=== PATIENT | male | born 1960 | race Caucasian/White ===

== ENCOUNTER 2018-10-08 02:00 | Inpatient (IN) ==
[2018-10-08] MEDS ORDERED: ASPIRIN PO ONE (02:19)
[2018-10-08] MEDS ORDERED: ASPIRIN PR ONE (02:19)
[2018-10-08 02:50] LABS: AGAP 13; ALB/GLOB RATIO 1.2; ALBUMIN 3.2 g/dL (3.5-5.0); ALKALINE PHOSPHATASE 86 U/L (32-122); BUN 15 mg/dL (8-22); CALCIUM 8.9 mg/dL (8.8-10.2); CHLORIDE 105 mmol/L (98-107); CK PROFILE 29 U/L (24-204); COSMO 282; CREATININE 0.6 mg/dL (0.7-1.2); ESTIMATED GFR > 60; GLUCOSE 104 mg/dL (70-104); GOT 20 U/L (10-34); GPT 33 U/L (10-44); POTASSIUM 4.3 mmol/L (3.5-5.1); SODIUM 141 mmol/L (136-145); TCO2 23 mmol/L (25-35); TOTAL BILIRUBIN 0.19 mg/dL (0.20-1.00); TOTAL PROTEIN 5.8 g/dL (6.3-8.3)
[2018-10-08 03:01] LABS: INR 0.89; PROTIME 12.7 Seconds (11.0-16.0)
[2018-10-08 03:02] LABS: PTT 29.4 Seconds (22.3-41.8)
[2018-10-08 03:39] LABS: BASO# 0.06 X1000 (0.0-0.2); BASO% 0.6 % (0.0-0.8); EOS# 0.43 X1000 (0.0-0.7); EOS% 4.1 % (0.0-10.0); HEMATOCRIT 40.1 % (42.0-52.0); HEMOGLOBIN 12.6 g/dL (14.0-18.0); IMM GRAN# 0.06 X1000 (0.0-0.04); IMM GRAN% 0.6 % (0.0-0.5); LYMPH# 3.36 X1000 (1.2-3.4); LYMPH% 31.8 % (20.5-51.1); MCH 27.3 PG (27-31); MCHC 31.4 g/dL (33-37); MCV 86.8 FL (81-99); MONO# 0.76 X1000 (0.11-0.59); MONO% 7.2 % (1.7-9.3); MPV 9.4 FL (7.4-10.4); NEUT# 5.89 X1000 (1.4-6.5); NEUT% 55.7 % (42.2-75.2); PLT 613 X1000 (130-400); RBC 4.62 XMIL (4.7-6.1); RDW 14.6 % (11.5-14.5); WBC 10.56 X1000 (4.8-10.8)
--- NOTE | 2018-10-08 07:18 | HISTORY AND PHYSICAL ---
CHIEF COMPLAINT: Chest pain. HISTORY OF PRESENT ILLNESS: This is a very pleasant 58-year-old male with hypertension who recently had a massive MA, and I think had several stents placed and a pacemaker. It looks like that was a couple of weeks ago, maybe even 3 weeks ago, 09/18/2018 in [place]. He had an inferior STEMI with reciprocal changes. The patient, today, had chest pain acutely, left-sided, somewhat different than his previous chest pain. He had some shortness of breath. But, because of his recent history, he came in for evaluation. EKG: I would say may be a bit nonspecific because he had the recent MA, and he has an evolving inferior MA. No new changes; however, his troponin was elevated at a level of 0.235 with a normal CK. MB was not done because CK was so low. ProBNP was a bit elevated, but the chest x-ray does not show clear infiltrates or edema. He is not short of breath. When I examined him this morning, he is lying there without significant difficulty. The patient was placed in observation for chest pain. Dr. Knight had been phoned consulted overnight and recommended at least observation. So, we will continue to observe and follow. This may be trending troponins from his recent MA. PAST MEDICAL HISTORY: 1. Hypertension. 2. Dyslipidemia. 3. CAD. 4. There may be some components of intellectual impairment and neurocognitive disorder. He has been in [place] for that, and that was a couple of years ago. PAST SURGICAL HISTORY: 1. He has had a left inguinal hernia repair per Dr. Austin. 2. He has had depression. FAMILY HISTORY: He denied any CAD. SOCIAL HISTORY: He smokes about a pack and a half a day. He has done that for probably at least 20-25 years; currently not smoking. REVIEW OF SYSTEMS: Otherwise negative x a 10-point review of systems. PHYSICAL EXAMINATION: VITAL SIGNS: Blood pressure is 96/63, heart rate of 64, respiratory rate of 18, temperature was 97.5. GENERAL: A well-developed male in no acute distress, lying comfortably in bed. HEENT: Eye Exam: Pupils equal, round, and reactive to light. Extraocular movements were intact. Ears, Nose, and Throat Exam: He had moist mucous membranes. NECK: Exam was supple. CARDIOVASCULAR: Regular rate and rhythm. No murmurs, gallops, or rubs. PULMONARY: Bilateral breath sounds clear to auscultation. GASTROINTESTINAL: Soft, nontender, nondistended. Bowel sounds are positive. EXTREMITY: No clubbing or cyanosis. LYMPHATIC: No peripheral edema. NEUROLOGICAL: Cranial nerves 2-12 are grossly intact. SKIN EXAM: His pacemaker site is on his lateral aspect of his rib cage. Wound is clean, dry, and intact. There is some understandable bruising. Otherwise, unremarkable. LABORATORY DATA: Creatinine 0.6. Troponin 0.235. Hemoglobin and hematocrit 12 and 40, platelets 613,000. EKG again shows evolving ST changes in his inferior leads consistent with previous MA. His chest x-ray to me looks clear. He has got pacemaker leads, although he may have changes consistent with COPD. ASSESSMENT: This is a 58-year-old male with history of coronary artery disease status post stents, who presents with chest pain, possibly atypical, possibly related to the pacemaker, but also possibly related to unstable angina. His troponin is elevated, but he had a recent myocardial infarction; granted, it was about 3 weeks ago. 1. Chest pain. We will continue to trend cardiac enzymes. Cardiology will be consulted and evaluate further. I will let them decide about imaging including echo at this time, and we will monitor for improvement. 2. Hypertension. His blood pressure is actually on the marginal side. We will continue Lopressor and follow. 3. Tobacco abuse. We have counseled on cessation which he has stopped smoking since his event. We will put on NicoDerm patch and follow closely. DISPOSITION: Just pending his status and Cardiology evaluation. cc: Errol Cole MD
--- NOTE | 2018-10-08 08:02 | Diag Imaging Result Doc PS360 ---
EXAM: CHEST-2 VIEWS 10/08/2018 HISTORY: CP TECHNIQUE: PA and lateral chest COMMENT: There is a subcutaneous ICD lead just to the right of the midline with the device in the left midaxillary line. This was not present at the time the previous study. There is no evidence of acute pulmonary parenchymal disease although some increase in prominence of the interstitial markings is present particularly in the left lower lobe. Some of this difference compared to 09/02/2018 may be related to differences in inspiration. IMPRESSION: No evidence of acute disease. Electronically signed by Ellis Oconnell 10/08/2018 7:59 AM
--- NOTE | 2018-10-08 08:07 | EKG Report ---
Test Performed on : 10/08/2018 02:11:43 AM Test Reason : CP Blood Pressure : / mmHG Vent. Rate : 061 BPM Atrial Rate : 061 BPM P-R Int : 146 ms QRS Dur : 094 ms QT Int : 440 ms P-R-T Axes : 052 -50 -51 degrees QTc Int : 442 ms Normal sinus rhythm. Left axis deviation Inferior infarct , age undetermined Abnormal ECG When compared with ECG of 18-SEP-2018 06:10, (Unconfirmed) Inferior infarct is now present ST no longer elevated in Inferior leads ST no longer elevated in Lateral leads T wave inversion now evident in Inferior leads Nonspecific T wave abnormality, worse in Lateral leads Unconfirmed Result
[2018-10-08] MEDS ORDERED: NICODERM PATCH TD PRN (08:36)
[2018-10-08] MEDS ORDERED: LOVENOX SUBQ SCH (08:36)
[2018-10-08] MEDS ORDERED: TYLENOL PO PRN (08:36)
[2018-10-08] MEDS ORDERED: ZOFRAN IV PRN (08:36)
--- NOTE | 2018-10-08 09:00 | EKG Report ---
Test Performed on : 10/08/2018 08:47:43 AM Test Reason : cp Blood Pressure : / mmHG Vent. Rate : 059 BPM Atrial Rate : 059 BPM P-R Int : 144 ms QRS Dur : 092 ms QT Int : 456 ms P-R-T Axes : 053 -46 -52 degrees QTc Int : 451 ms Sinus bradycardia. Left axis deviation Inferior infarct (cited on or before 18-SEP-2018) Abnormal ECG When compared with ECG of 08-OCT-2018 02:11, (Unconfirmed) Nonspecific T wave abnormality now evident in Anterior leads Confirmed by Antoine Akbar MD ([id number]) on 10/09/2018 9:20:35 AM
[2018-10-08] MEDS: BRILINTA PO SCH ×2 (10:19→20:14)
[2018-10-08] MEDS: PRILOSEC PO SCH (10:19)
[2018-10-08] MEDS: LOPRESSOR PO SCH (10:19)
[2018-10-08] MEDS ORDERED: LOVENOX SUBQ ONE ×2 (12:15→12:30)
[2018-10-08] MEDS ORDERED: HEPARIN 1000 UNITS/NS 2,000 UNIT/1,000 ML IV.SOLN ONE (13:19)
[2018-10-08] MEDS ORDERED: NS 1,000 ML ONE (13:57)
[2018-10-08] MEDS ORDERED: VERSED ONE (13:57)
[2018-10-08] MEDS ORDERED: DEMEROL ONE ×2 (13:57→14:15)
[2018-10-08] MEDS ORDERED: CLAVE TWINSITE 32 IN 11959 ONE (13:57)
--- NOTE | 2018-10-08 14:04 | CARDIOLOGY CONSULTATION ---
DATE: 10/08/2018 CHIEF COMPLAINT: Chest pain. HISTORY: Mr. Sanford is a 58-year-old male who presented to the Emergency Room early this morning, I believe at about 1 o'clock with complaints of the sudden onset of substernal chest pain and left arm pain that woke him up from his sleep. The pain was intense and intermittent. It was somewhat different than the pain that brought him to the Emergency Room 3 weeks ago. However, because of his recent heart attack he woke up his and was brought to the E.R. In the E.R. they did an EKG that shows abnormal repolarization of the inferior wall with Q waves there suggesting an old inferior scar. Troponins were noted to be elevated at 0.235 and 0.219. CPK was 26. Albumin was 3.2 and proBNP elevated at 1531. BUN and creatinine are normal. The patient received a chest x-ray that shows no evidence of acute disease. He was given some nitro paste and aspirin and he is feeling a little better today. He has had some recurrent chest pain through the morning. I am seeing him at about 12:30 p.m. PAST MEDICAL HISTORY: His past history is positive for the recent event of an acute inferior wall myocardial infraction complicated with ventricular arrhythmia requiring resuscitation maneuvers. He was rushed to [facility] where they found severe right coronary artery and LAD disease. They worked on the right coronary artery and put in 3 stents there and at least one stent in the LAD. The initial angiographic result was good. His ejection fraction was down and they chose to put a defibrillator on him a few days ago. It is a subcutaneous defibrillator unit. The patient's past history is positive for depression and migraine headaches. He has not had any major other illnesses. PAST SURGICAL HISTORY: He has had inguinal hernia repair. Surgical history includes the recent implantation of a subcutaneous defibrillator. FAMILY HISTORY: Negative. SOCIAL HISTORY: He is still a smoker; about 1 pack a day. He lives with his and they have 3 children ages 22, 18, and 11. HOME MEDICATIONS: His home medications since the event happened on 09/18/2018 have been aspirin 81 mg daily, Brilinta 90 mg twice a day, metoprolol 50 mg daily, and Lipitor 40 mg at bedtime. REVIEW OF SYSTEMS: His review of systems is really noncontributory beyond the cardiac symptoms. PHYSICAL EXAMINATION: Vital Signs: Blood pressure is 110/62, temperature 97.5 , pulse 66, and respirations 22. His weight is 132 pounds. General: He is awake, alert, oriented, and in no distress. HEENT: Normal. Chest: Clear to auscultation and percussion. Cardiovascular: Heart sounds are regular and rhythmic. I do not hear a gallop or murmur. There is an incision in the chest from the implanted subcutaneous defibrillator. Abdomen: The abdomen is nontender. No masses. No hepatomegaly. Extremities: The extremities show good pulses. No peripheral edema. Neurological: He follows commands and moves all extremities. LABORATORY DATA: His sodium, potassium, BUN, and creatinine are normal. His hemoglobin is 12.6 and hematocrit 40.1. White cell count 10,560. IMPRESSION: 1. A patient who presents with recurrent chest pain following an acute myocardial infarction on 09/18/2018 with implantation of multiple stents. He does have multivessel coronary artery disease. This probably represents angina pectoris,unstable. 2. Left ventricular dysfunction post myocardial infarction. 3. Implantation of a prophylactic automatic implantable cardioverter defibrillator. 4. History of depression. 5. Tobacco user. RECOMMENDATIONS: Given his presentation and the recent event and the multiple stents I believe that the best way to make a diagnosis on this patient is to really proceed with left heart catheterization. I explained to him the procedure, benefits, risks, and complications. He is in agreement. Depending on the findings we will make further determinations and decisions. cc: Benji Grimm MD MTDD
--- NOTE | 2018-10-08 15:31 | EKG Report ---
Test Performed on : 10/08/2018 3:23:34 PM Test Reason : post cath. Blood Pressure : / mmHG Vent. Rate : 053 BPM Atrial Rate : 053 BPM P-R Int : 144 ms QRS Dur : 094 ms QT Int : 480 ms P-R-T Axes : 066 -39 -46 degrees QTc Int : 450 ms Sinus bradycardia. Left axis deviation Inferior infarct (cited on or before 08-OCT-2018) T wave abnormality, consider anterolateral ischemia Abnormal ECG When compared with ECG of 08-OCT-2018 08:47, (Unconfirmed) Inverted T waves have replaced nonspecific T wave abnormality in Anterolateral leads Confirmed by Raffy MARTÍNEZ, Antoine Francis ([id number]) on 10/09/2018 9:22:00 AM
[2018-10-08] MEDS ORDERED: NS 1,000 ML IV SCH (16:00)
--- NOTE | 2018-10-08 19:07 | CARDIAC CATH REPORT ---
DATE: 10/08/2018 PROCEDURE: 1. Left heart catheterization. 2. Selective bilateral coronary arteriography. 3. Left ventriculogram. 4. Opacification of the right femoral artery with deployment of a 6-Andorran Angio -Seal device. HISTORY: The patient is a 58-year-old male who presented with an acute myocardial infarction to the hospital on 09/18/2018. He was [facility] to [facility]. They found severe disease with subtotal occlusion of the right coronary artery and also severe stenosis of LAD. He suffered ventricular fibrillation. They were able to revascularize the right coronary artery with several stents and then the LAD with one stent. He presented to the hospital today at 1 :00 in the morning with chest pains. The troponin done initially was 0.23 and the second one 0.25. His CPKs were negative. ECG showed T wave inversion in the inferior leads, no ST elevation. His pain was not as severe as original heart attack and it eventually seemed to get better. The patient, because of his recent history, is advised to pursue heart catheterization to confirm or rule out the presence of a change in his coronary status. Benefits, risks, and complications were discussed. He understood and requested to proceed. DESCRIPTION OF PROCEDURE: The patient came into the cardiac cardiac cath lab manager in a fasting state. The right groin was prepped and draped in sterile fashion, anesthetized with lidocaine 1%. Two doses of Versed 1 mg and two doses of Demerol 25 mg given. A 6-Andorran sheath was inserted into the right femoral artery by following the modified Seldinger technique. The coronary arteries were opacified with 6-Andorran left Joey catheter and with a 5-Andorran YANELY catheter. With the right Joey catheter we negotiated the aortic valve. Left ventricular pressure was measured. Left ventriculogram was performed in 60-degree BOLIVIAN projection and 30- degree BROWNING projection by hand injection. At the conclusion of the case, all the catheters were removed. The sheaths were flushed and opacified. Angio-Seal device was deployed successfully. The patient tolerated the procedure well without complication. SUMMARY OF THE HEMODYNAMIC FINDINGS: The central aortic pressure was 101/72, left ventricular pressure 97/12. Post LV gram 94/12. Final central pressure was 101/60. SUMMARY OF THE ANGIOGRAPHIC FINDINGS: CORONARY ARTERIES: 1. Right coronary artery: Vessel is completely occluded after giving rise to an acute marginal branch. There are stents noted within the proximal and mid body as well as distal segment of the right coronary artery. The vessel is totally occluded. collateral circulation demonstrates flow from left to right into the distal terminal branches of the right coronary artery. 2. Left main coronary artery: The left main coronary artery appears to be anatomically normal. It divides into LAD and circumflex. 3. Left anterior descending coronary artery: This vessel shows mild to moderate disease in the order of 20% to 30% proximally. The previously deployed stent is patent. Distally, the vessel is patent and wraps around the apex of the left ventricle. 4. Circumflex: The circumflex coronary artery is nondominant, gives rise to a sinus rony branch, a tiny lateral branch. Thereafter gives rise to an atrial branch and a good obtuse marginal vessel. Circumflex shows couple of areas of 20% to 30% plaque. No critical stenosis. LEFT VENTRICULOGRAM: Left ventriculogram in 30-degree BROWNING projection and 60- degree BOLIVIAN projection reveals good contractility of the anterior apical portion of the left ventricle with akinesis of the basal to mid inferior wall of the left ventricle. That is consistent with a myocardial infarction. No mitral regurgitation. OPACIFICATION OF THE RIGHT FEMORAL ARTERY: The right femoral artery is unremarkable and Angio- Seal device was deployed successfully. FLUOROSCOPY: Fluoroscopy revealed the presence of stents within the right coronary artery and also within the LAD and the presence of subcutaneous defibrillator, which was given to the patient recently. IMPRESSION: In summary, this study shows: 1. Severe coronary artery disease with total occlusion of recently stented right coronary artery. Collateral flow from left to right is well visualized. 2. Patent left anterior descending with patent stent. Mild disease in the circumflex. 3. Ejection fraction about 45% to 50% with akinesis of the basal to mid inferior wall. 4. No mitral regurgitation or aortic stenosis. 5. Unremarkable right femoral artery with deployment of 6-Andorran Angio-Seal device. RECOMMENDATION: Per discussion with Misty Portillo, Dr. Duval, who had performed the original intervention and given the fact that the vessel is totally occluded, it has been more than 12 hours since presentation, and he is not having further chest pains and besides, there is evidence of an extensive inferior wall infarction, and evidence of good collateralization from left to right, it is probably best to pursue conservative medical management . We will observe him in the hospital for next couple of days and further advice will be forthcoming. cc: Benji Grimm MD MTDD
[2018-10-08] MEDS ORDERED: LIPITOR PO SCH (21:00)
--- NOTE | 2018-10-08 21:02 | PROVIDER DOCUMENTATION ---
HPI-General Adult - General Chief Complaint: Chest Pain Stated Complaint: CHEST PAIN/HEART ATTACK WEEK Time Seen by Provider: 10/08/18 02:27 Source: patient Allergies/Adverse Reactions: Patient Allergies Allergy/AdvReac Type Severity Reaction Status Date / Time No Known Allergies Allergy Verified 10/08/18 05:37 Home Medications: Home Medication List Medication Instructions Recorded Confirmed Last Taken Type ATORVAstatin [Lipitor] 40 mg PO QHS 10/08/18 10/08/18 10/07/18 History Aspirin [Ecotrin] 81 mg PO DAILY 10/08/18 10/08/18 10/07/18 History Metoprolol [Lopressor] 50 mg PO DAILY 10/08/18 10/08/18 10/07/18 History Ticagrelor [Brilinta] 90 mg PO BID 10/08/18 10/08/18 10/07/18 History - History of Present Illness -Gen Adult Nature of Presenting Problems: Pt presents with cp, started at 1am, sudden onset, left sided, comes and goes, no resolved, associated with sob, pt denies f/c, mayorga, cough, ap, n/v/d. pt is lying in bed in no acute distress. Location of Pain/Injury: reports: chest Pain Radiation: reports: other (left arm) Quality of Pain: reports: sharp Severity: reports: mild Onset/Duration: reports: 1-3 hours ago Timing: reports: gone now Context/Activities at Onset: reports: none Modifying Factors: improves with: nothing Associated Symptoms: reports: shortness of breath Similar Symptoms Previously?: Yes Recently seen or treated by another doctor?: Yes Review of Systems - Adult - REVIEW OF SYSTEMS - ADULT Constitutional: reports: no symptoms reported Eyes: reports: no symptoms reported Ears, Nose, Mouth & Throat: reports: no symptoms reported Cardiovascular: reports: see HPI Respiratory: reports: see HPI Gastrointestinal: reports: no symptoms reported Genitourinary: reports: no symptoms reported Musculoskeletal: reports: no symptoms reported Integumentary: reports: no symptoms reported Neurological: reports: no symptoms reported Psychiatric: reports: no symptoms reported Endocrine: reports: no symptoms reported Hematologic/Lymphatic: reports: no symptoms reported Allergic/Immunologic: reports: no symptoms reported All Other Systems: Reviewed and Negative Past History - Adult - PAST MEDICAL HISTORY-ADULT Review of Records: reports: Old Records Reviewed, Nursing Assessment Review, Medications Reviewed, Social history reviewed & non-contributory. Major Childhood Illnesses: reports: denies history Cardiovascular: reports: denies history Respiratory: reports: denies history Gastrointestinal: reports: denies history Obstetrical/Gynecological: reports: denies history Genitourinary: reports: denies history Musculoskeletal: reports: denies history Neurological: reports: denies history Psychiatric: reports: bipolar, psychiatric problems Endocrine/Immune: reports: denies history Other Conditions: reports: denies history - PRIOR SURGERIES/PROCEDURES Surgical/Procedure History: reports: none - PRIOR HOSPITALIZATIONS Prior Hospitalizations: reports: none - IMMUNIZATION STATUS Childhood Immunizations: See Nurse Assessment Flu Vaccine: See Nurse Assessment - FAMILY HISTORY Family History: reviewed, not pertinent Physical Exam-General - PHYSICAL EXAM-ADULT Initial Vital Signs Reviewed: Yes - CONSTITUTIONAL General Appearance: appears well - EYES Eyes: PERRL/EOMI - HEAD, EARS, NOSE, MOUTH & THROAT HENMT: normocephalic/atraumatic - NECK Neck: non-tender - RESPIRATORY Respiratory: chest non-tender - CARDIOVASCULAR Cardiovascular: normal peripheral pulses - GASTROINTESTINAL (ABDOMEN) Abdominal Exam: normal bowel sounds - LYMPHATIC Lymphatic: no adenopathy - MUSCULOSKELETAL Back Exam: normal inspection Extremity: normal range of motion - SKIN Integumentary: normal color - NEUROLOGIC 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 - PSYCHIATRIC Psych/Mental Status: normal mood/affect Progress - PLAN OF CARE/RESULTS Progress/Plan/Lab Results: Laboratory Results - last 24 hr 10/08/18 10/08/18 10/08/18 02:22 02:22 02:22 WBC 10.56 RBC 4.62 L Hgb 12.6 L Hct 40.1 L MCV 86.8 MCH 27.3 MCHC 31.4 L RDW Std Deviation 14.6 H Plt Count 613 H MPV 9.4 Immature Gran % (Auto) 0.6 H Neut % (Auto) 55.7 Lymph % (Auto) 31.8 Dade % (Auto) 7.2 Eos % (Auto) 4.1 Baso % (Auto) 0.6 Immature Gran # (Auto) 0.06 H Neut # (Auto) 5.89 Lymph # (Auto) 3.36 Dade # (Auto) 0.76 H Eos # (Auto) 0.43 Baso # (Auto) 0.06 PT INR PTT (Actin FS) Sodium 141 Potassium 4.3 Chloride 105 Carbon Dioxide 23 L Anion Gap 13 BUN 15 Creatinine 0.6 L Estimated GFR/1.73 m2 > 60 BUN/Creatinine Ratio 25 Glucose 104 Calculated Osmolality 282 Calcium 8.9 Total Bilirubin 0.19 L AST 20 ALT 33 Alkaline Phosphatase 86 Creatine Kinase 29 Troponin T Reh-V-Fxrrmdmswji Pept 1531 H Total Protein 5.8 L Albumin 3.2 L Globulin 2.6 Albumin/Globulin Ratio 1.2 10/08/18 10/08/18 02:22 02:22 WBC RBC Hgb Hct MCV MCH MCHC RDW Std Deviation Plt Count MPV Immature Gran % (Auto) Neut % (Auto) Lymph % (Auto) Dade % (Auto) Eos % (Auto) Baso % (Auto) Immature Gran # (Auto) Neut # (Auto) Lymph # (Auto) Dade # (Auto) Eos # (Auto) Baso # (Auto) PT 12.7 INR 0.89 PTT (Actin FS) 29.4 Sodium Potassium Chloride Carbon Dioxide Anion Gap BUN Creatinine Estimated GFR/1.73 m2 BUN/Creatinine Ratio Glucose Calculated Osmolality Calcium Total Bilirubin AST ALT Alkaline Phosphatase Creatine Kinase Troponin T 0.235 H Yfu-W-Ewfkrengtat Pept Total Protein Albumin Globulin Albumin/Globulin Ratio Orders Category Date Time Status Admit - [facility] Routine AdmDCTranf 10/08/18 08:36 Active Cardiac Monitoring DIRECTED Care 10/08/18 02:19 Completed Notify MD if DIRECTED Care 10/08/18 08:36 Active Nursing- MD Consult Request ROUTINE Care 10/08/18 08:36 Completed Oxygen Therapy- ED Nursing DIRECTED Care 10/08/18 02:19 Completed Saline Loc DIRECTED Care 10/08/18 08:36 Completed Saline Loc NOW Care 10/08/18 02:19 Completed Vital Signs Order Q 4-HR ASSESS Care 10/08/18 08:36 Completed Z-Document. for Tele Applied ORDERED Care 10/08/18 08:36 Completed Physician/Provider Consults Routine Cons 10/08/18 08:36 Ordered Heart Healthy Diet Diet 10/08/18 08:36 Completed NPO Diet 10/08/18 08:36 Completed CHEST-2 VIEWS [RAD] Stat Exams 10/08/18 02:19 Completed BASIC METABOLIC PANEL [CHEM] Routine Lab 10/09/18 06:00 Ordered CBC WITH ELECTRONIC DIFF [HEME] Routine Lab 10/09/18 06:00 Ordered CBC WITH ELECTRONIC DIFF [HEME] Stat Lab 10/08/18 02:22 Completed CK PROFILE [SP CHEM] Q8H Lab 10/08/18 09:00 Completed CK PROFILE [SP CHEM] Q8H Lab 10/08/18 16:22 Completed CK PROFILE [SP CHEM] Q8H Lab 10/09/18 00:36 Ordered CK PROFILE [SP CHEM] Stat Lab 10/08/18 02:22 Completed COMPREHENSIVE METABOLIC PANEL [CHEM] Stat Lab 10/08/18 02:22 Completed LIPID PROFILE W/DIR LDL [LIPIDS] Routine Lab 10/08/18 09:00 Completed PRO B-NATRIURETIC PEPTIDE Stat Lab 10/08/18 02:22 Completed PROTIME WITH INR [COAG] Stat Lab 10/08/18 02:22 Completed PTT [COAG] Stat Lab 10/08/18 02:22 Completed TROPONIN T Q8H Lab 10/08/18 09:00 Completed TROPONIN T Q8H Lab 10/08/18 16:22 Completed TROPONIN T Q8H Lab 10/09/18 00:36 Ordered TROPONIN T Stat Lab 10/08/18 02:22 Completed ATORVAstatin [Lipitor] Med 10/08/18 21:00 Active 40 mg PO QHS Acetaminophen [Tylenol] Med 10/08/18 08:36 Active 650 mg PO Q6H PRN PRN Aspirin Med 10/08/18 02:19 Discontinued 300 mg OK NOW ONE Aspirin Med 10/08/18 02:19 Discontinued 325 mg PO NOW ONE Aspirin EC Med 10/09/18 09:00 Active 81 mg PO DAILY Enoxaparin [Lovenox] Med 10/08/18 08:36 Discontinued 40 mg SUBQ Q24H Metoprolol [Lopressor] Med 10/08/18 09:00 Active 50 mg PO DAILY Nicotine Patch [Nicoderm Patch] Med 10/08/18 08:36 Active 21 mg TD DAILY PRN PRN Nitroglycerin Sl [Nitroglycerin] Med 10/08/18 08:36 Active 0.4 mg SL Q5M PRN PRN Omeprazole [Prilosec] Med 10/08/18 08:36 Active 20 mg PO DAILY@0700 Ondansetron [Zofran] Med 10/08/18 08:36 Active 4 mg IV Q4H PRN PRN Ticagrelor [Brilinta] Med 10/08/18 09:00 Active 90 mg PO BID CP/SOB/Palp >45 yrs of Age Stat Oth 10/08/18 02:19 Ordered Oxygen Device Routine Oth 10/08/18 08:36 Active Telemetry [OM.EQ] Routine Oth 10/08/18 08:36 Active EKG [EKG] Routine Ther 10/08/18 08:36 Draft EKG [EKG] Stat Ther 10/08/18 02:07 Draft Transfer/Admit Order [TRANSFER] Routine Transfer 10/08/18 06:16 Completed Result Diagrams: 10/08/18 02:22 10/08/18 02:22 Departure - Departure Date of Disposition Decision: 10/08/18 Time of Disposition Decision: 02:45 DIAGNOSIS: Chest pain Qualifiers: Chest pain type: unspecified Qualified Code(s): R07.9 - Chest pain, unspecified Disposition: ADMITTED INPATIENT 09 Certified Medical Emergency: Emergent Condition: Stable - Critical Care Note This patient required my direct & personal management of CC.: No Attestation - Physician/ ANGI Attestation Patient care was provided by Advanced Practice Provider:: No The physician spent face to face time with patient:: Yes Advanced Practice Provider documentation review:: Supervising physician onsite and consulted in the evaluation and care of this patient. The physician did have a face to face encounter with the patient.
[2018-10-09] MEDS ORDERED: MELATONIN PO ONE (01:10)
[2018-10-09] MEDS: LOVENOX SUBQ SCH ×2 (05:16→18:07)
[2018-10-09] MEDS: PRILOSEC PO SCH ×2 (05:16→06:32)
[2018-10-09 05:56] LABS: AGAP 11; BUN 13 mg/dL (8-22); CALCIUM 8.6 mg/dL (8.8-10.2); CHLORIDE 107 mmol/L (98-107); COSMO 282; CREATININE 0.7 mg/dL (0.7-1.2); ESTIMATED GFR > 60; GLUCOSE 102 mg/dL (70-104); POTASSIUM 4.3 mmol/L (3.5-5.1); SODIUM 141 mmol/L (136-145); TCO2 23 mmol/L (25-35)
[2018-10-09 06:13] LABS: BASO# 0.06 X1000 (0.0-0.2); BASO% 0.6 % (0.0-0.8); EOS# 0.37 X1000 (0.0-0.7); EOS% 3.5 % (0.0-10.0); HEMATOCRIT 39.5 % (42.0-52.0); HEMOGLOBIN 12.5 g/dL (14.0-18.0); IMM GRAN# 0.04 X1000 (0.0-0.04); IMM GRAN% 0.4 % (0.0-0.5); LYMPH# 2.71 X1000 (1.2-3.4); LYMPH% 25.5 % (20.5-51.1); MCH 27.9 PG (27-31); MCHC 31.6 g/dL (33-37); MCV 88.2 FL (81-99); MONO# 0.61 X1000 (0.11-0.59); MONO% 5.7 % (1.7-9.3); MPV 9.5 FL (7.4-10.4); NEUT# 6.85 X1000 (1.4-6.5); NEUT% 64.3 % (42.2-75.2); PLT 538 X1000 (130-400); RBC 4.48 XMIL (4.7-6.1); RDW 14.7 % (11.5-14.5); WBC 10.64 X1000 (4.8-10.8)
--- NOTE | 2018-10-09 07:02 | EKG Report ---
Test Performed on : 10/09/2018 06:41:45 AM Test Reason : chest pain/LA Blood Pressure : / mmHG Vent. Rate : 064 BPM Atrial Rate : 064 BPM P-R Int : 140 ms QRS Dur : 094 ms QT Int : 448 ms P-R-T Axes : 060 -37 -47 degrees QTc Int : 462 ms Normal sinus rhythm. Left axis deviation Inferior infarct (cited on or before 08-OCT-2018) Abnormal ECG When compared with ECG of 08-OCT-2018 15:23, (Unconfirmed) T wave inversion no longer evident in Anterior leads Confirmed by Antoine Akbar MD ([id number]) on 10/09/2018 9:22:43 AM
[2018-10-09] MEDS: LOPRESSOR PO SCH (08:00)
[2018-10-09] MEDS: BRILINTA PO SCH ×2 (08:00→20:24)
[2018-10-09] MEDS: ASPIRIN EC PO SCH (08:00)
--- NOTE | 2018-10-09 09:09 | PROGRESS NOTE ---
DATE: 10/09/2018 SUBJECTIVE: The patient reports feeling fine, denies any chest pain, any shortness of breath, any chest pressure, any nausea or discomfort. OBJECTIVE: Vital signs: Temperature 98.6, heart rate 68, respiratory 17, blood pressure 100/57, O2 sat 96% on 2 L nasal cannula. General: This is a clinically ill-looking 49-egtf-Zejon[age] male lying in bed in no acute distress. HEENT: Head is normocephalic, atraumatic. Mucous membranes seem dry. Neck: No JVD noted, no carotid bruits, no lymphadenopathy or thyromegaly. Cardiovascular: S1, S2 heard. No murmurs, gallops, or rubs. Regular rate and rhythm. Respiratory: Clear bilaterally to auscultation. No work of breathing or using accessory muscles. Abdomen: Soft, nontender to palpation. Bowel sounds present. No organomegaly. Extremities: No clubbing, cyanosis, or edema. Peripheral pulses present in both legs. Neurological: The patient is alert, oriented x3, moves four extremities. LABORATORY DATA: White cell count 10.64, hemoglobin 12.5, hematocrit 39.5, platelets 538 with normal BMP. Troponins are 0.230, and that has been around that range during the last 4 times that we have checked. ASSESSMENT AND PLAN: 1. Inferior wall acute myocardial infarction. The patient has been evaluated by Cardiology. They found on the left heart cath severe coronary artery disease with total occlusion of the recent stent to the right coronary artery. There has been a conversation with [facility], Dr. Duval, who did his first original intervention, and the recommendation is, considering that at the time that they were contacted it has been more than 12 hours since presentation and he is not having any chest pain, they recommend to keep him in the hospital 48 hours. I checked with Dr. Grimm, his densitometrist who is following him, and he preferred to keep him at least one more day here in the hospital considering that he had 2 recent episodes of myocardial infarction during the last 60 days. At this point, will continue following recommendations from them. 2. Hypertension. Blood pressure is in the range of high 90s and 100s. At this point, we do not need to add any medications to control blood pressure. Will continue to monitor. 3. Tobacco abuse. The patient has been counseled again on cessation, because this is one of the risk factors for cardiovascular disease that we can avoid. The patient acknowledged understanding. 4. Disposition: Will continue to monitor this patient closely here in the intensive care unit because of this reason, inferior wall PA. Will continue with Lovenox 1 mg/kg q.12 h., and if everything is okay and Cardiology says it is okay, will discharge this patient tomorrow. cc: Fer Agudelo MD
--- NOTE | 2018-10-09 11:01 | CARDIOLOGY PROGRESS NOTE ---
DATE: 10/09/2018 CHIEF COMPLAINT: Chest pain. SUBJECTIVE: Mr. Sanford is feeling better today. He is not having anymore chest pain. His groin is slightly tender. No swelling. OBJECTIVE: Vital signs: Temperature 98.6, pulse 68, respirations 17, blood pressure 100/57. General: The patient is awake, alert, oriented, in no distress. HEENT: Unremarkable. Chest: Clear to auscultation and percussion. Cardiac: Heart sounds regular and rhythmic, no gallop or murmur. Abdomen: Nontender. Extremities: Show good pulses, no edema. Neurological: Follows commands, moves four extremities. BLOOD WORK: His last 2 troponin levels were 0.230 at 5 a.m. today and 0.223 at midnight. Initial was 0.235. It seems like it is slightly going down. All his CPKs have been negative, a total of 4. His EKG today shows sinus rhythm, left axis, and a deep T-wave inversion in the inferior leads. His cholesterol, LDL is 102, total cholesterol 148, triglycerides 119, HDL 49. IMPRESSION: 1. Patient who presented with recurrent chest pain, probably acute coronary syndrome. 2. Status post previous intervention for acute myocardial infarction to the right coronary artery in September 18 2018. Left Heart cath done on October 08 2018 indicates occlusion of the entire right coronary artery after the origin of an acute marginal branch. There is collateral circulation going from the left to the right. This occlusion probably just happened in the past few days. 3. Tobacco user. 4. History of depression. 5. Potential for medical noncompliance. RECOMMENDATIONS: The patient has been found stable at this time. My recommendation is to maximize his cholesterol-lowering therapy. We really need to drive down his LDL cholesterol to the 60s. We are going to go up on Lipitor to 80 mg. He has to take 81 of aspirin plus Brilinta 90 twice a day for the next one year. Ideally, he should follow up with the physicians in [place] who were involved in his initial care and for ongoing followup. He really needs to establish with a primary care provider. He may be able to go home tomorrow if everything is okay. cc: MD BEATRIZ Mclaughlin
[2018-10-09] MEDS ORDERED: MORPHINE IV ONE (14:17)
[2018-10-09] MEDS ORDERED: MORPHINE ONE (14:27)
--- NOTE | 2018-10-09 14:29 | EKG Report ---
Test Performed on : 10/09/2018 2:16:56 PM Test Reason : cp Blood Pressure : / mmHG Vent. Rate : 055 BPM Atrial Rate : 055 BPM P-R Int : 152 ms QRS Dur : 094 ms QT Int : 460 ms P-R-T Axes : 054 -35 -53 degrees QTc Int : 440 ms Sinus bradycardia. Left axis deviation Inferior infarct (cited on or before 08-OCT-2018) T wave abnormality, consider anterolateral ischemia Abnormal ECG When compared with ECG of 09-OCT-2018 06:41, T wave inversion now evident in Anterior leads Confirmed by Antoine Akbar MD ([id number]) on 10/10/2018 8:31:00 AM
[2018-10-09] MEDS: NITROGLYCERIN SL PRN (20:24)
[2018-10-09] MEDS: LIPITOR PO SCH (20:24)
[2018-10-09] MEDS: MORPHINE IV PRN (23:37)
[2018-10-10] MEDS: PRILOSEC PO SCH ×2 (05:51→06:20)
[2018-10-10] MEDS: MORPHINE IV PRN (05:51)
[2018-10-10] MEDS: LOVENOX SUBQ SCH ×2 (05:51→18:26)
[2018-10-10] MEDS: BRILINTA PO SCH ×2 (08:14→22:42)
[2018-10-10] MEDS: ASPIRIN EC PO SCH (08:14)
[2018-10-10] MEDS: NITROGLYCERIN SL PRN (10:11)
[2018-10-10] MEDS: LOPRESSOR PO SCH (10:25)
--- NOTE | 2018-10-10 13:24 | PROGRESS NOTE ---
DATE: 10/10/2018 SUBJECTIVE: As per the patient, he has been having chest pain on and off at least every 30 minutes to every hour. He denies nausea or vomiting. No fever. No chills. He describes the chest pain as pressure like and a little bit more pressure-like on the right side of the chest, and some sharp pain more close to the sternal area. Creatinine is normal. Cardiology on board. OBJECTIVE: Vital Signs: Temperature 98.5 degrees, pulse 60, respiratory rate 18, blood pressure 97/58, oxygen saturation 100% on 2 L of nasal cannula. HEENT: Head normocephalic. No trauma. PERRLA. Neck: Supple. No JVD. No masses. Central trachea. Chest: Clear to auscultation. No wheezing. No rales. Cardiovascular: RRR. Abdomen: Soft, nontender, nondistended. No hepatosplenomegaly. Inguinal area on the right side no evidence of active bleeding or infection. Neurological: The patient is alert and oriented x3. No focal neurological deficits. LABORATORY: Creatinine 0.7. ASSESSMENT AND PLAN: 1. Chest pain likely due to acute coronary syndrome. Left heart catheterization done recently on 10/08/2017 showed occlusion of the right coronary artery after the origin of the acute marginal branch, and it looks like there is collateral circulation going from the left to the right. He is status post previous intervention for an acute myocardial infarction to the right coronary artery on 09/18/2018. We are trying to treat this patient medically. Cardiology Department following this patient closely, and they then had conversation with [facility]. since he had the intervention over there. He is still complaining of some chest pain that is quite frequent. 2. Hypertension. Actually the blood pressure is around 90s and 100s. We will continue with the same management. Cardiology on board. 3. Tobacco abuse. This patient has been highly advised against tobacco use. I will continue with daily cessation education. cc: Hever Haywood MD
[2018-10-10] MEDS ORDERED: RANEXA PO ONE (14:48)
[2018-10-10] MEDS ORDERED: 1/2 NS 250 ML IV SCH ×2 (15:00→15:30)
[2018-10-10] MEDS: 1/2 NS 1,000 ML IV SCH (15:10)
[2018-10-10] MEDS: LIPITOR PO SCH ×2 (19:57→22:38)
[2018-10-10] MEDS: RANEXA PO SCH ×2 (19:57→22:38)
[2018-10-10] MEDS: XANAX PO SCH (20:40)
[2018-10-11] MEDS: NITROGLYCERIN SL PRN ×2 (02:51→03:03)
[2018-10-11] MEDS: 1/2 NS 1,000 ML IV SCH (03:25)
[2018-10-11] MEDS: LOVENOX SUBQ SCH (05:58)
[2018-10-11] MEDS: PRILOSEC PO SCH (06:20)
[2018-10-11] MEDS: BRILINTA PO SCH ×2 (08:40→21:10)
[2018-10-11] MEDS: ASPIRIN EC PO SCH (08:40)
[2018-10-11] MEDS: RANEXA PO SCH ×2 (08:41→21:09)
[2018-10-11] MEDS: LOPRESSOR PO SCH (08:41)
--- NOTE | 2018-10-11 09:25 | PROGRESS NOTE ---
DATE: 10/11/2018 SUBJECTIVE: As per the patient, he has not been having chest pain. He spent a good night. He denies fever or chills. His creatinine is good. I discussed the case with Cardiology department yesterday. They will monitor probably this patient until tomorrow, but since he feels much better today, probably he is going to be discharged today, but I will follow recommendations. OBJECTIVE: Vital Signs: Temperature 98, pulse 59, respiratory rate 18, blood pressure 98/62, oxygen saturation 98 on 2 liters of nasal cannula. HEENT: Head normocephalic. No trauma. PERRLA. Neck: Supple. No JVD. No masses. Intact trachea. Chest: Clear to auscultation. No wheezing, no rales. Cardiovascular: RRR. Abdomen: Soft, nontender, nondistended. No hepatosplenomegaly. His inguinal hernia looks fine. Neurologic: The patient is alert and oriented x3. No focal deficits. LABORATORY DATA: Creatinine 0.7. ASSESSMENT AND PLAN: 1. Chest pain, likely secondary to acute coronary syndrome. Left heart catheterization done recently on 10/08/2017 showed occlusion of the right coronary artery after the origin of the marginal branch. It looks like there is collateral circulation going from the left to the right. He is status post previous intervention from an acute myocardial infarction to the right coronary artery on 09/18/2017. We are trying to treat this patient medically. Cardiology department following this patient closely and they have been talking to [facility] since he had an intervention over there. He is not complaining of chest pain at this moment. 2. Hypertension. Actually the patient has been in the 90s and 100s. 3. Tobacco abuse. This patient has been highly advised against tobacco use. I will continue with cessation education. cc: Hever Haywood MD
--- NOTE | 2018-10-11 12:45 | ECHO REPORT ---
ORDER DATE: 10/10/2018 ECHOCARDIOGRAPHIC MEASUREMENTS: 1. Interventricular septum 1.2. 2. Left ventricular posterior wall 1.1. 3. Diastolic diameter 5. 4. Left atrium 3.6. 5. Aorta 3.1. SUMMARY OF 2-DIMENSIONAL IMAGIN. Aortic valve leaflets are trileaflet. 2. Mitral valve was normal. Tricuspid valve was normal. Pulmonic valve was normal. 3. There was no aortic stenosis or regurgitation. There was trace to mild mitral regurgitation. Mild tricuspid regurgitation. Peak velocity across the tricuspid valve was 2 m/sec. 4. Normal left ventricular cavity size. Estimated ejection fraction of 55-60%. There is inferior wall akinesis. 5. There is no pericardial effusion or obvious intracardiac mass or thrombus. cc: Edy Crook MD
[2018-10-11] MEDS: LIPITOR PO SCH (21:09)
[2018-10-11] MEDS: XANAX PO SCH (21:09)
[2018-10-12 05:20] LABS: HEMATOCRIT 38.3 % (42.0-52.0); MCH 27.5 PG (27-31); MCHC 31.3 g/dL (33-37); MCV 87.8 FL (81-99); RBC 4.36 XMIL (4.7-6.1); RDW 14.5 % (11.5-14.5); WBC 8.69 X1000 (4.8-10.8)
[2018-10-12 05:41] LABS: AGAP 10; BUN 16 mg/dL (8-22); CALCIUM 8.8 mg/dL (8.8-10.2); CHLORIDE 106 mmol/L (98-107); COSMO 282; CREATININE 0.9 mg/dL (0.7-1.2); ESTIMATED GFR > 60; GLUCOSE 98 mg/dL (70-104); SODIUM 141 mmol/L (136-145); TCO2 25 mmol/L (25-35)
[2018-10-12] MEDS: PRILOSEC PO SCH (06:47)
--- NOTE | 2018-10-12 07:13 | EKG Report ---
Test Performed on : 10/10/2018 10:53:11 AM Test Reason : CP Blood Pressure : / mmHG Vent. Rate : 062 BPM Atrial Rate : 062 BPM P-R Int : 142 ms QRS Dur : 092 ms QT Int : 456 ms P-R-T Axes : 056 -46 -63 degrees QTc Int : 462 ms Normal sinus rhythm. Left axis deviation Low voltage QRS Inferior infarct (cited on or before 08-OCT-2018) Abnormal ECG When compared with ECG of 10-OCT-2018 05:52, (Unconfirmed) Serial changes of Inferior infarct present Confirmed by Raffy MARTÍNEZ, Antoine Francis ([id number]) on 10/12/2018 8:53:11 AM
[2018-10-12] MEDS ORDERED: LOPRESSOR PO SCH (07:45)
--- NOTE | 2018-10-12 08:09 | EKG Report ---
Test Performed on : 10/10/2018 05:52:41 AM Test Reason : cp Blood Pressure : / mmHG Vent. Rate : 057 BPM Atrial Rate : 057 BPM P-R Int : 148 ms QRS Dur : 094 ms QT Int : 446 ms P-R-T Axes : 065 -39 -56 degrees QTc Int : 434 ms Sinus bradycardia. Left axis deviation Low voltage QRS Inferior infarct (cited on or before 08-OCT-2018) Abnormal ECG When compared with ECG of 09-OCT-2018 14:16, (Unconfirmed) Serial changes of Inferior infarct present Confirmed by Raffy MARTÍNEZ, Antoine Francis ([id number]) on 10/12/2018 8:52:14 AM
[2018-10-12] MEDS: BRILINTA PO SCH (09:14)
[2018-10-12] MEDS: ASPIRIN EC PO SCH (09:14)
[2018-10-12] MEDS: RANEXA PO SCH (09:14)
[2018-10-12 09:16] VITALS: BP 98/60
--- NOTE | 2018-10-12 16:22 | DISCHARGE SUMMARY ---
ADMISSION DATE: 10/08/2018 DISCHARGE DATE: 10/12/2018 DISCHARGE DIAGNOSES: 1. Chest pain secondary to acute coronary syndrome. 2. Hypertension. 3. Tobacco abuse. 4. Status post previous intervention for acute myocardial infarction to the right coronary artery in 09/18/2018. 5. History of depression. 6. Potential for medical noncompliance. PROCEDURES PERFORMED: 1. Chest x-ray dated 10/08/2018. Impression: No evidence of acute disease. 2. Left heart catheterization with selective bilateral carotid coronary angiography, left ventriculogram and opacifications of the right femoral artery with deployment of a C6-Stateless Angio-Seal device dated 10/08/2018. Results: Severe coronary artery disease with total occlusion of the recent stent. Stented right coronary artery, collateral flow from left to right is well visualized. Patent left anterior descending with patent stent, mild disease in the circumflex, ejection fraction about 45 to 50 percent with akinesis of the basal and mid inferior wall, no mitral regurgitation or aortic stenosis, unremarkable right femoral artery with deployment of the 6-Stateless Angio-Seal device. HOSPITAL COURSE: 58-year-old male with a past medical history of hypertension, dyslipidemia and coronary artery disease with some possible intellectual impairment and or neuro- cognitive disorder. He presented to the hospital and was admitted on 10/08/2018. Recently, he had a massive DE and he was treated at [facility] in [place], where they placed some stents. That was done on 09/18/2018. He had an inferior STEMI with reciprocal changes. The patient presented to emergency department with chest pain left-sided that was somewhat different than his previous chest pain. He had some shortness of breath but because of his recent history, he came for evaluation. EKG was nonspecific because he had a recent DE. No new changes. However, his troponin was elevated at 0.2 on admission with a normal CK. ProBNP was a little bit elevated but chest x-ray did not show any acute abnormality. He was not complaining of shortness of breath. He was resting comfortably in bed. He was admitted and evaluated by the Cardiology Department and they have recommended to proceed with a left heart catheterization. The procedure was done on 10/08/2018. It showed a severe coronary artery disease with total occlusion of recently stented right coronary artery, collateral flow from the [id number] is well visualized, patent left anterior descending with patent stent, mild disease in the circumflex, ejection fraction about 45 to 50 percent with akinesis of the basal and mid inferior wall. No mitral regurgitation or aortic stenosis. Unremarkable right femoral artery with deployment of a 6-Stateless Angio-Seal device. At that point, Dr. Grimm discussed the case with [facility] health information manager Dr. Duval who had performed the original intervention. Given the fact that the vessel is totally occluded, it has been more than 12 hours since presentation and he is not having further chest pain and besides there is evidence of an extensive inferior wall infarction, and evidence of good collateralization from [id number] and it is probably best to continue with just conservative medical management. We kept the patient in the hospital for a couple of days and he was not complaining of chest pain yesterday or today. No shortness of breath, so we have decided to discharge this patient with strict followup by his primary whey department operator at [place], [place]. At the moment of discharge, this patient was tolerating p.o., ambulating, and not having chest pain or shortness of breath. I had a large conversation with the patient about tobacco abuse. As per the patient, he is willing to stop smoking completely, and I did give daily cessation education. OBJECTIVE: Vital Signs: Temperature 97.9 degrees, pulse 68, respiratory rate 15, blood pressure 98/60. Oxygen saturation 99 on 2 L of nasal cannula. HEENT: Head normocephalic. No trauma. PERRLA. Neck: Supple. No JVD. No masses. Central trachea. Chest: Clear to auscultation. No wheezing. No rales. Abdomen: Soft, nontender, nondistended. No hepatosplenomegaly. Extremities: No edema. No clubbing. No cyanosis. Inguinal area on the right side with a really small hematoma measuring 0.5 cm from previous cardiac cath but no signs of bleeding or infection. Neurological: The patient is alert and oriented x3. No focal deficits. LABORATORY: WBC 8.6, hemoglobin 12, hematocrit 38.3, platelets 387,000. Sodium 141, potassium 4, chloride 106, bicarbonate 25, BUN 16, creatinine 0.9. Glucose 98, calcium 8.8. DISCHARGE MEDICATIONS: Brilinta 90 mg p.o. b.i.d., aspirin 81 mg p.o. daily. Ranexa 500 mg p.o. b.i.d. Prilosec 20 mg p.o. daily. Nitroglycerin sublingual 0.4 mg sublingual q.5 hours minutes p.r.n. chest pain. Nicotine patch 21 mg transdermal daily as needed. Metoprolol 25 mg p.o. q.12 hours. Xanax 0.25 mg p.o. daily as needed and Lipitor 80 mg p.o. at bedtime. TIME SPENT AT DISCHARGE: Time discharging this patient is 35 minutes. cc: Hever Haywood MD
== END 2018-10-12 10:31 | disposition home or self-care (01) | DRG 282 ==
LOC: SUATTDRO → ED 02:00 → EDIPHOLD 08:07 → SUATTDRO 08:07 → 4N 09:16 → 3S 14:29
PROVIDERS: ATTEND Internal Medicine
CPT/HCPCS: 71020; 71046; 80048; 80053; 80061; 82550; 82565; 83721; 83735; 83880; 84484; 85025; 85027; 85610; 85730; 93005; 93010; 93306; 93458; 99285; A9270; C1760; J1644; J1650; J2175; J2250; J2270; J7030; Q9967

== ENCOUNTER 2019-03-30 09:20 | Observation (INO) ==
[2019-03-30] MEDS ORDERED: ASPIRIN PO ONE (09:26)
[2019-03-30] MEDS ORDERED: NITROGLYCERIN SL ONE ×2 (09:44→10:04)
--- NOTE | 2019-03-30 09:44 | PROVIDER DOCUMENTATION ---
HPI-Chest Pain - General Chief Complaint: Chest Pain Stated Complaint: CHEST PAIN Time Seen by Provider: 03/30/19 09:28 Source: patient Allergies/Adverse Reactions: Patient Allergies Allergy/AdvReac Type Severity Reaction Status Date / Time No Known Allergies Allergy Verified 03/30/19 09:42 Home Medications: Home Medication List Medication Instructions Recorded Confirmed Last Taken Type Aspirin [Ecotrin] 81 mg PO DAILY 10/08/18 10/25/18 10/07/18 History Ticagrelor [Brilinta] 90 mg PO BID 10/08/18 10/25/18 10/07/18 History ATORVAstatin [Lipitor] 80 mg PO QHS #120 tab 10/12/18 10/25/18 Unknown Rx Alprazolam [Xanax] 0.25 mg PO DAILY PRN #10 tab 10/12/18 10/25/18 Unknown Rx Metoprolol [Lopressor] 25 mg PO Q12H #120 tab 10/12/18 10/25/18 Unknown Rx Nicotine Patch [Nicoderm Patch] 21 mg TD DAILY PRN PRN patch.td24 10/12/18 10/25/18 Unknown Rx Nitroglycerin Sl [Nitroglycerin] 0.4 mg SL Q5M PRN PRN #10 tab 10/12/18 10/25/18 Unknown Rx Omeprazole [Prilosec] 20 mg PO DAILY@0700 #90 cap 10/12/18 10/25/18 Unknown Rx Ranolazine E.r. [Ranexa] 500 mg PO BID #120 tab 10/12/18 10/25/18 Unknown Rx - History of Present Illness-CP Nature of Presenting Problem: 58 y/o WM c/o lt sided chest pain that started this am about 30 mins before coming to the ER. Pt has hx of 3 stents and PA 6 months ago. Pt states that he was just sitting on his proch when he started having Lt sided CP that radiated to lt arm and sweating with SOB. Location: reports: other (lt chest) Chest Pain Radiation: reports: arms Quality of Pain: reports: aching, sharp Severity in ED: moderate Onset/Duration: abrupt Timing: still present Context/Activities at Onset: reports: light activity Modifying Factors: improves with: nothing Associated Symptoms: reports: shortness of breath Nitro Today/Relief: 0.4 mg x 1 Aspirin Treatment Today: 81 mg x 1 Prior Chest Pain/Cardiac Workup: reports: heart attack Similar Symptoms Previously?: Yes Recently Seen Here or By Another Healthcare Provider: No Review of Systems - Adult - REVIEW OF SYSTEMS - ADULT Constitutional: reports: no symptoms reported, see HPI Eyes: reports: no symptoms reported, see HPI Ears, Nose, Mouth & Throat: reports: no symptoms reported, see HPI Cardiovascular: reports: see HPI, chest pain Respiratory: reports: see HPI, shortness of breath Gastrointestinal: reports: no symptoms reported, see HPI Genitourinary: reports: no symptoms reported, see HPI Musculoskeletal: reports: no symptoms reported, see HPI Integumentary: reports: no symptoms reported, see HPI Neurological: reports: no symptoms reported, see HPI Psychiatric: reports: no symptoms reported, see HPI Endocrine: reports: no symptoms reported, see HPI Hematologic/Lymphatic: reports: no symptoms reported, see HPI Allergic/Immunologic: reports: no symptoms reported, see HPI All Other Systems: Reviewed and Negative Past History - Adult - PAST MEDICAL HISTORY-ADULT Review of Records: reports: Nursing Assessment Review, Medications Reviewed, Social history reviewed & non-contributory. Major Childhood Illnesses: reports: denies history Cardiovascular: reports: denies history Respiratory: reports: denies history Gastrointestinal: reports: denies history Obstetrical/Gynecological: reports: denies history Genitourinary: reports: denies history Musculoskeletal: reports: denies history Neurological: reports: denies history Psychiatric: reports: bipolar, psychiatric problems Endocrine/Immune: reports: denies history Other Conditions: reports: denies history - PRIOR SURGERIES/PROCEDURES Surgical/Procedure History: reports: none - PRIOR HOSPITALIZATIONS Prior Hospitalizations: reports: none - IMMUNIZATION STATUS Childhood Immunizations: See Nurse Assessment Flu Vaccine: See Nurse Assessment - FAMILY HISTORY Family History: reviewed, not pertinent Physical Exam-General - PHYSICAL EXAM-ADULT Initial Vital Signs Reviewed: Yes - CONSTITUTIONAL General Appearance: appears well, alert, mild distress - EYES Eyes: PERRL/EOMI - HEAD, EARS, NOSE, MOUTH & THROAT HENMT: normocephalic/atraumatic, moist mucous membranes, normal ENT inspection - NECK Neck: non-tender, full range of motion, supple, normal inspection - RESPIRATORY Respiratory: chest non-tender, lungs clear, normal breath sounds, no pleuratic chest pain, no respiratory distress, no accessory muscle use - CARDIOVASCULAR Cardiovascular: normal peripheral pulses, regular rate, rhythm, no edema, no gallop, no JVD, no murmur - GASTROINTESTINAL (ABDOMEN) Abdominal Exam: normal bowel sounds, non tender, soft, no organomegaly, no pulsatile mass - LYMPHATIC Lymphatic: no adenopathy - MUSCULOSKELETAL Back Exam: normal inspection, no CVA tenderness, no vertebral tenderness Extremity: normal range of motion, non-tender, normal gait - SKIN Integumentary: normal color, normal turgor - NEUROLOGIC Neurologic: tinsmith helper II-XII nml as tested, grossly normal, no motor/sensory deficits - PSYCHIATRIC Psych/Mental Status: normal mood/affect, normal thought content, normal thought process, oriented x 3 - HEART Score HEART Score: History: Moderately Suspicious HEART Score: ECG: Non-Specific Repolarization Disturbance/LBBB/PM HEART Score: Age: 45-65 Years HEART Score: Risk Factors for Atherosclerotic Disease: > or = 3 Risk Factors or History of Atherosclerotic Disease HEART Score: Troponin: < or = Normal Limit Total HEART Score:: 5 Progress - PLAN OF CARE/RESULTS Progress/Plan/Lab Results: Vital Signs - 8 hr 03/30/19 09:24 03/30/19 09:37 03/30/19 10:06 Temperature 97.3 F L Pulse Rate 63 62 64 Respiratory Rate 18 19 19 Blood Pressure 156/90 139/86 114/75 O2 Sat by Pulse Oximetry 97 97 99 03/30/19 10:32 Temperature Pulse Rate 54 L Respiratory Rate 18 Blood Pressure 121/82 O2 Sat by Pulse Oximetry 98 Laboratory Results - last 24 hr 03/30/19 03/30/19 03/30/19 09:40 09:40 09:40 WBC 7.71 RBC 5.11 Hgb 14.3 Hct 42.8 MCV 83.8 MCH 28.0 MCHC 33.4 RDW Std Deviation 14.6 H Plt Count 281 MPV 10.1 Immature Gran % (Auto) 0.5 Neut % (Auto) 51.9 Lymph % (Auto) 34.1 [place] % (Auto) 7.9 Eos % (Auto) 5.1 Baso % (Auto) 0.5 Immature Gran # (Auto) 0.04 Neut # (Auto) 4.00 Lymph # (Auto) 2.63 [place] # (Auto) 0.61 H Eos # (Auto) 0.39 Baso # (Auto) 0.04 PT INR PTT (Actin FS) Sodium 141 Potassium 4.1 Chloride 106 Carbon Dioxide 24 L Anion Gap 11 BUN 17 Creatinine 1.0 Estimated GFR/1.73 m2 > 60 BUN/Creatinine Ratio 17 Glucose 99 Calculated Osmolality 283 Calcium 9.5 Total Bilirubin 0.66 AST 15 ALT 17 Alkaline Phosphatase 61 Creatine Kinase 56 Troponin T Uih-[id number]-[id number] Pept 282 H Total Protein 6.4 Albumin 4.2 Globulin 2.2 Albumin/Globulin Ratio 1.9 03/30/19 03/30/19 09:40 09:40 WBC RBC Hgb Hct MCV MCH MCHC RDW Std Deviation Plt Count MPV Immature Gran % (Auto) Neut % (Auto) Lymph % (Auto) [place] % (Auto) Eos % (Auto) Baso % (Auto) Immature Gran # (Auto) Neut # (Auto) Lymph # (Auto) [place] # (Auto) Eos # (Auto) Baso # (Auto) PT 13.3 INR 1.00 PTT (Actin FS) 30.3 Sodium Potassium Chloride Carbon Dioxide Anion Gap BUN Creatinine Estimated GFR/1.73 m2 BUN/Creatinine Ratio Glucose Calculated Osmolality Calcium Total Bilirubin AST ALT Alkaline Phosphatase Creatine Kinase Troponin T < 0.010 Dfb-H-Diigbxgcotb Pept Total Protein Albumin Globulin Albumin/Globulin Ratio Orders Category Date Time Status Cardiac Monitoring DIRECTED Care 03/30/19 09:26 Active Saline Loc NOW Care 03/30/19 09:26 Active CHEST-2 VIEWS [RAD] Stat Exams 03/30/19 09:26 Completed CBC WITH ELECTRONIC DIFF [HEME] Stat Lab 03/30/19 09:40 Completed CK PROFILE [SP CHEM] Stat Lab 03/30/19 09:40 Completed COMPREHENSIVE METABOLIC PANEL [CHEM] Stat Lab 03/30/19 09:40 Completed PRO B-NATRIURETIC PEPTIDE Stat Lab 03/30/19 09:40 Completed PROTIME WITH INR [COAG] Stat Lab 03/30/19 09:40 Completed PTT [COAG] Stat Lab 03/30/19 09:40 Completed TROPONIN T Stat Lab 03/30/19 09:40 Completed Aspirin Med 03/30/19 09:26 Discontinued 325 mg PO NOW ONE Hydromorphone [Dilaudid] Med 03/30/19 10:31 Discontinued 1 mg IV NOW ONE Nitroglycerin Sl [Nitroglycerin] Med 03/30/19 09:44 Discontinued 0.4 mg SL NOW ONE Nitroglycerin Sl [Nitroglycerin] Med 03/30/19 10:04 Discontinued 0.4 mg SL NOW ONE Ondansetron [Zofran] Med 03/30/19 10:31 Discontinued 4 mg IV NOW ONE CP/SOB/Palp >45 yrs of Age Stat Oth 03/30/19 09:26 Ordered EKG [EKG] Stat Ther 03/30/19 09:26 Draft At recheck pt notes that CP was relieved with dilaudid and nitro. Hospitalist paged for admit [id number]. Result Diagrams: 03/30/19 09:40 03/30/19 09:40 - CONSULTS/PCP/HOSPITALIST Notification #1 *Consult/PCP/Hospitalist*: Nettie for Dr Crooks Time Discussed: 11:10 Consult Disposition: Will see in ED, Admit Departure - Departure Date of Disposition Decision: 03/30/19 Time of Disposition Decision: 11:10 DIAGNOSIS: Chest pain, HTN (hypertension) Disposition: ADMITTED INPATIENT 09 Certified Medical Emergency: Emergent Condition: Fair Referrals and Follow-Ups: Sarah Caraballo [Primary Care Provider] - - Critical Care Note This patient required my direct & personal management of CC.: No Attestation - Physician/ ANGI Attestation Patient care was provided by Advanced Practice Provider:: No The physician spent face to face time with patient:: Yes Advanced Practice Provider documentation review:: Supervising physician onsite and consulted in the evaluation and care of this patient. The physician did have a face to face encounter with the patient.
--- NOTE | 2019-03-30 09:46 | EKG Report ---
Test Performed on : 03/30/2019 09:22:31 AM Test Reason : chest pain Blood Pressure : / mmHG Vent. Rate : 061 BPM Atrial Rate : 061 BPM P-R Int : 152 ms QRS Dur : 090 ms QT Int : 450 ms P-R-T Axes : 040 -48 -23 degrees QTc Int : 453 ms Normal sinus rhythm. Left axis deviation Possible Lateral infarct , age undetermined Inferior infarct (cited on or before 08-OCT-2018) Abnormal ECG When compared with ECG of 25-OCT-2018 11:26, Nonspecific T wave abnormality no longer evident in Anterior leads Unconfirmed Result
[2019-03-30 09:59] LABS: BASO# 0.04 X1000 (0.0-0.2); BASO% 0.5 % (0.0-0.8); EOS# 0.39 X1000 (0.0-0.7); EOS% 5.1 % (0.0-10.0); HEMATOCRIT 42.8 % (42.0-52.0); HEMOGLOBIN 14.3 g/dL (14.0-18.0); IMM GRAN# 0.04 X1000 (0.0-0.04); IMM GRAN% 0.5 % (0.0-0.5); LYMPH# 2.63 X1000 (1.2-3.4); LYMPH% 34.1 % (20.5-51.1); MCHC 33.4 g/dL (33-37); MCV 83.8 FL (81-99); MONO# 0.61 X1000 (0.11-0.59); MONO% 7.9 % (1.7-9.3); MPV 10.1 FL (7.4-10.4); NEUT% 51.9 % (42.2-75.2); PLT 281 X1000 (130-400); RBC 5.11 XMIL (4.7-6.1); RDW 14.6 % (11.5-14.5); WBC 7.71 X1000 (4.8-10.8)
--- NOTE | 2019-03-30 10:02 | Diag Imaging Result Doc PS360 ---
EXAM: CHEST-2 VIEWS HISTORY: chest pain TECHNIQUE: Chest two views COMPARISON: 10/25/2018 FINDINGS: The lungs are well expanded. The heart is not enlarged. The vessels are not distended. There are no infiltrates. No pleural effusions. No change in the left lateral electronically device which may be a defibrillator. IMPRESSION: No acute abnormality. Electronically signed by Josemanuel Brower 03/30/2019 10:00 AM
--- NOTE | 2019-03-30 10:03 | ED EKG INTERP ---
This chart was entered by Vera Pruitt Scribe, acting as scribe for Peng Villaseñor MD. EKG Interpretation - EKG Time of EKG reading by physician:: 09:22 EKG Read and Signed by:: Peng Villaseñor EKG Interpretation (*Must complete 3 of following elements*): Abnormal Rate: 61 Rhythm: nsr Drury: left (deviation) QRS: other (poss lateral infarct/inferior infarct, age undetermined) NV Interval: normal ST Wave: normal Attestation - Physician/ ANGI Attestation Patient care was provided by Advanced Practice Provider:: No The physician spent face to face time with patient:: Yes Advanced Practice Provider documentation review:: Supervising physician onsite and consulted in the evaluation and care of this patient. The physician did have a face to face encounter with the patient. This chart was documented by the indicated scribe, (Vera Pruitt Scribe) and accurately reflects the services I performed and decisions made by me, Peng Villaseñor MD, as attested by the provider's signature.
[2019-03-30 10:04] LABS: PROTIME 13.3 Seconds (11.0-16.0)
[2019-03-30 10:05] LABS: PTT 30.3 Seconds (22.3-41.8)
[2019-03-30 10:23] LABS: AGAP 11; CHLORIDE 106 mmol/L (98-107); POTASSIUM 4.1 mmol/L (3.5-5.1); SODIUM 141 mmol/L (136-145); TCO2 24 mmol/L (25-35)
[2019-03-30 10:24] LABS: ALB/GLOB RATIO 1.9; ALBUMIN 4.2 g/dL (3.5-5.0); ALKALINE PHOSPHATASE 61 U/L (32-122); BUN 17 mg/dL (8-22); CALCIUM 9.5 mg/dL (8.8-10.2); CK PROFILE 56 U/L (24-204); COSMO 283; ESTIMATED GFR > 60; GLUCOSE 99 mg/dL (70-104); GOT 15 U/L (10-34); GPT 17 U/L (10-44); TOTAL BILIRUBIN 0.66 mg/dL (0.20-1.00); TOTAL PROTEIN 6.4 g/dL (6.3-8.3)
[2019-03-30] MEDS ORDERED: DILAUDID IV ONE (10:31)
[2019-03-30] MEDS ORDERED: ZOFRAN IV ONE (10:31)
[2019-03-30] MEDS ORDERED: TYLENOL PO PRN (12:12)
[2019-03-30] MEDS ORDERED: NITROGLYCERIN SL PRN (12:12)
[2019-03-30] MEDS ORDERED: ZOFRAN IV PRN (13:00)
[2019-03-30] MEDS ORDERED: XANAX PO PRN (13:28)
[2019-03-30 13:49] LABS: AGAP 11; BUN 17 mg/dL (8-22); CALCIUM 9.4 mg/dL (8.8-10.2); CHLORIDE 105 mmol/L (98-107); CK PROFILE 55 U/L (24-204); COSMO 283; ESTIMATED GFR > 60; GLUCOSE 95 mg/dL (70-104); POTASSIUM 4.3 mmol/L (3.5-5.1); SODIUM 141 mmol/L (136-145); TCO2 25 mmol/L (25-35)
[2019-03-30] MEDS ORDERED: IMDUR PO ONE (14:14)
--- NOTE | 2019-03-30 14:19 | HISTORY AND PHYSICAL ---
PRIMARY CARE PHYSICIAN: Dr. Sarah Caraballo. CHIEF COMPLAINT: Chest pain that began 30 minutes prior to arriving, radiating to his left arm, with associated diaphoresis and shortness of breath. HISTORY OF PRESENTING ILLNESS: This is a 58-year-old male who presents to [facility] with complaints of left-sided chest pain that began approximately 30 minutes prior to arriving. He states the pain felt like a pressure and radiated, with numbness and tingling down his left arm. He had some associated diaphoresis and shortness of breath. He states that he was sitting out on his porch when this occurred this morning. Once he arrived to the emergency room, he had 2 nitroglycerin sublingually, and it was relieved after the second one. He states that he had an RI x2 six months ago that were 4 days apart, requiring 3 heart stent placements and that this discomfort does not feel the same as his previous heart attack. His workup in the emergency room showed his first troponin was negative, but he will be admitted for further evaluation and treatment. PAST MEDICAL HISTORY: Hypertension, dyslipidemia, coronary artery disease, depression, RI x2 six months ago that were 4 days apart, bipolar, schizophrenia, and mild retardation. PAST SURGICAL HISTORY: Heart stent placement x3 six months ago, status post RI x2, and a left inguinal hernia repair. FAMILY HISTORY: Reviewed and noncontributory. SOCIAL HISTORY: He currently lives with family. He is a pack and a half a day smoker for the past 25 years but has quit since his RI. Denies any alcohol or illicit drug use. ALLERGIES: He has no known drug allergies. HOME MEDICATIONS: A current list will need to be obtained, reconciled, reviewed, and restarted as appropriate. We will place an order for nursing to update and confirm home medications. LABORATORY DATA: Showed a white blood cell count of 7.71, hemoglobin 14.3, hematocrit 42.8, platelets 281,000. PT and INR of 13.3 and 1.0. Sodium 141, potassium 4.1, chloride 106, CO2 is 24, BUN of 17, creatinine 1, glucose 99. Cardiac enzyme x1 set was negative. ProBNP of 282. Chest x-ray showed no acute abnormality. EKG showed normal sinus rhythm at 61. REVIEW OF SYSTEMS: He denied any fever, chills, blurred vision, or dizziness. He did have some diaphoresis, chest pain, shortness of breath. The pain radiated to his left arm with numbness and tingling. Denied any abdominal pain, constipation, diarrhea, burning or hurting with urination. PHYSICAL EXAMINATION: VITAL SIGNS: On arrival, he had a temperature of 97.3 degrees, pulse 63, respirations 18, blood pressure 156/90, saturating 97% on room air. GENERAL: This is a 58-year-old male lying in the bed and answers questions appropriately. HEENT: Normocephalic, atraumatic. Normal ENT inspection. Oropharynx and nares are clear. EYES: Pupils are equal, round, reactive to light and accommodation. Extraocular movements are intact. NECK: Normal inspection, normal range of motion. LUNGS: Clear to auscultation bilaterally. Equal lung expansion and chest wall movement. HEART: Regular rate and rhythm. No murmurs, rubs, or gallops. ABDOMEN: Soft, nontender, nondistended. Bowel sounds are present x4 quadrants. MUSCULOSKELETAL: He has 5/5 strength x4 extremities. NEUROLOGICAL: The cranial nerves II through XII appear grossly intact. ASSESSMENT: 1. Unstable angina. 2. Hypertension. 3. Coronary artery disease. Aware. 4. Mild mental retardation with bipolar schizophrenia. PLAN: He is being admitted to the Medical Unit, placed on telemetry, O2 per protocol. Healthy heart diet. We will consult Cardiology. We will update and confirm home medications as previously noted. We will do serial cardiac enzymes q.8 hours x3. We will check a CBC and BMP in the a.m. SCDs for DVT prophylaxis. Further orders after seen by attending and regional engagement consultant. Dictated by VINCE Herron for Corey Crooks MD cc: VINCE Herron MD Valerie Wright I agree with most components of history, physical, assessment and plan. A separate addendum has been dictated. BEATRIZ
[2019-03-30] MEDS: MORPHINE IV PRN ×2 (14:29→19:43)
--- NOTE | 2019-03-30 14:51 | EKG Report ---
Test Performed on : 03/30/2019 2:28:14 PM Test Reason : Persistent chest pain Blood Pressure : / mmHG Vent. Rate : 049 BPM Atrial Rate : 049 BPM P-R Int : 168 ms QRS Dur : 098 ms QT Int : 488 ms P-R-T Axes : 054 -51 -40 degrees QTc Int : 440 ms Sinus bradycardia. Left axis deviation Inferior infarct (cited on or before 08-OCT-2018) Abnormal ECG When compared with ECG of 30-MAR-2019 09:22, (Unconfirmed) No significant change was found Confirmed by Robi Waters MD ([id number]) on 04/01/2019 7:24:36 AM
--- NOTE | 2019-03-30 15:06 | HISTORY AND PHYSICAL ---
ADDENDUM: I agree with most components of the history, physical, assessment, and plan. In brief, Mr. Sanford is a 58-year-old, man with a past medical history of coronary artery disease, status post 3 stents in the RCA and 1 stent in the LAD in October 2018, congestive heart failure, status post AICD, who comes in with chief complaints of left-sided precordial chest pain with left shoulder and arm radiation associated with diaphoresis and shortness of breath which started when he was sitting on the couch. His chest pain got slightly better after a second dose of nitroglycerin in the emergency room. He was also given 325 mg of aspirin. Previously, he was also found to have a total occlusion of recently stented right coronary artery with collateral flow from left to right, which was decided to be managed medically. In the emergency room, EKG had old Q-wave in inferior leads and first set of troponin was negative. SUBJECTIVE: At the time of my evaluation, he still complains of chest pain located in the left side and wants some pain medications. VITALS: Temperature 97.5 degrees, pulse 53, respiratory rate 18, blood pressure 103/72. He is saturating 95% on room air. He is denying any cough. PHYSICAL EXAMINATION: GENERAL: In mild distress because of chest pain. HEENT: Oral cavity is moist. LUNGS: Air entry bilaterally equal. No wheeze, rhonchi, crackles. CARDIOVASCULAR: S1, S2 normal. No murmur, rub, or gallop. ABDOMEN: Soft, nontender. EXTREMITIES: No lower extremity edema. NEUROLOGIC: He is alert and oriented x3. SKIN: Does not have any pallor, cyanosis, clubbing, or icterus. LABS: Suggestive of normal CBC, normal coagulation profile, normal kidney function. Two troponins have been negative. No new microbiological data. IMAGING: Chest x-ray was unremarkable. EKG had Q-waves in inferior leads without any new ST-T changes. ASSESSMENT: 1. Chest pain at rest, Unstable angina with prior history of severe coronary artery disease 2. Congestive heart failure, status post automatic implantable cardioverter defibrillator. PLAN: I will resume patient's home dual antiplatelet medication. The patient states that he took aspirin and Brilinta in the morning time. I will repeat a stat EKG and cardiology has been consulted. Depending on that, I will go ahead and give him a dose of in therapeutic enoxaparin. Plan of care discussed with him. His questions have been answered. cc: Corey Crooks MD MTDD
[2019-03-30] MEDS: LOVENOX SUBQ SCH ×2 (17:20→17:36)
--- NOTE | 2019-03-30 19:32 | CARDIOLOGY CONSULTATION ---
DATE: 03/30/2019 CONSULTATION REQUESTED BY: Hospitalist service. REASON FOR CONSULTATION: Chest pain. HISTORY: Mr. Sanford is a 58-year-old male, normally followed by Dr. Walter in [place], who presented at this time to the emergency room because he had significant chest discomfort after doing some work in the yard. He was weeding. The patient did that for about 15 minutes, and then he had to stop, with significant discomfort in the chest which radiated to the arm. In the ER, he was given some pain medication and nitroglycerin, and eventually the pain gradually improved. At this time, he is doing better. I am seeing him at about 4 p.m. PAST MEDICAL HISTORY: Positive for severe coronary heart disease. He had a myocardial infarction in 2017 that led to cardiac arrest, requiring multiple stents to the right coronary artery and 1 to the LAD. He was readmitted to this hospital in October, and at that time I performed a heart catheterization that showed that the entire right coronary artery was completely occluded with some collaterals coming from the left system to the distal right coronary branches. In November of this year, they attempted to recanalize the right coronary artery; however they failed, and they recommended maximal medical therapy. The patient has been having chest pain off and on since then. The patient has a history of hypertension, hyperlipidemia, and also a history of bipolar disorder. PAST SURGICAL HISTORY: He has had implantation of an ICD. He has had inguinal hernia repair. SOCIAL HISTORY: He is , disabled. He lives at home. He has 3 grownup children. He has been a tobacco user, but he quit with his heart attack in 2018. FAMILY HISTORY: Noncontributory. ALLERGIES: Negative. HOME MEDICATIONS: At this time include alprazolam, aspirin, atorvastatin 80 daily, carvedilol 6.25 twice a day, isosorbide mononitrate 60 mg daily, mirtazapine 30 at bedtime, omeprazole 20 mg daily, Ranexa 1000 twice a day, Brilinta 90 mg twice a day, trazodone 50 mg at bedtime. REVIEW OF SYSTEMS: Other than the recurrent angina pectoris, noncontributory. PHYSICAL EXAMINATION: Vital signs: Blood pressure 121/75, pulse is 50 per minute, temperature 97.5 degrees, respirations 18. General: He is awake, alert, in no distress. HEENT: Unremarkable. Chest: Diffusely diminished breath sounds. Cardiovascular: Heart sounds are regular and rhythmic. No gallop or murmur. Abdomen: Soft, nontender. No masses. No hepatomegaly. Extremities: Showed good pulses. No peripheral edema. Neurological: Nonfocal. Moves 4 extremities. LABORATORY DATA: Blood work: Sodium 141, potassium 4.3, BUN 17, creatinine 1.0, chloride 105, carbon dioxide 25. IMPRESSION: 1. Patient who presents with chest pain, possible unstable angina. He has severe coronary heart disease with total occlusion of the right coronary artery and collaterals coming from the left to right. He has a moderate circumflex stenosis. 2. Systolic heart failure secondary to myocardial infarction. 3. Status post automatic implantable cardioverter-defibrillator implantation for prevention of sudden . 4. History of tobacco use. RECOMMENDATIONS: 1. At this time, we will do a resting gated myocardial perfusion study to see what is his resting ejection fraction is, and to see whether or not there may be ischemia in the territory of the circumflex coronary artery. 2. We will continue with maximal medical therapy. 3. I had a long conversation with the patient about the need to limit his physical activities to only the ones that he can reasonably tolerate. The patient really is not somebody that should be doing strenuous physical activity outside. cc: Benji Grimm MD MTDD
[2019-03-30] MEDS ORDERED: BRILINTA PO SCH (21:00)
[2019-03-30] MEDS ORDERED: RANEXA PO SCH (21:00)
[2019-03-30] MEDS: REMERON PO SCH (21:52)
[2019-03-30] MEDS: COREG PO SCH (21:54)
[2019-03-31] MEDS: LOVENOX SUBQ SCH ×2 (03:34→16:11)
[2019-03-31] MEDS: PRILOSEC PO SCH (06:14)
[2019-03-31] MEDS: MORPHINE IV PRN ×4 (06:43→20:23)
[2019-03-31] MEDS ORDERED: PRILOSEC PO SCH (07:00)
--- NOTE | 2019-03-31 07:13 | EKG Report ---
Test Performed on : 03/31/2019 06:50:59 AM Test Reason : Follow up EKG Blood Pressure : / mmHG Vent. Rate : 052 BPM Atrial Rate : 052 BPM P-R Int : 158 ms QRS Dur : 096 ms QT Int : 460 ms P-R-T Axes : 054 -41 -35 degrees QTc Int : 427 ms Sinus bradycardia. Left axis deviation Inferior infarct (cited on or before 08-OCT-2018) Abnormal ECG When compared with ECG of 30-MAR-2019 14:28, (Unconfirmed) No significant change was found Confirmed by Robi Waters MD ([id number]) on 04/01/2019 7:31:32 AM
[2019-03-31 07:16] LABS: BASO# 0.03 X1000 (0.0-0.2); BASO% 0.4 % (0.0-0.8); EOS# 0.46 X1000 (0.0-0.7); EOS% 6.2 % (0.0-10.0); HEMATOCRIT 42.1 % (42.0-52.0); HEMOGLOBIN 13.7 g/dL (14.0-18.0); IMM GRAN# 0.02 X1000 (0.0-0.04); IMM GRAN% 0.3 % (0.0-0.5); LYMPH# 2.72 X1000 (1.2-3.4); LYMPH% 36.8 % (20.5-51.1); MCHC 32.5 g/dL (33-37); MCV 86.1 FL (81-99); MONO# 0.53 X1000 (0.11-0.59); MONO% 7.2 % (1.7-9.3); MPV 10.3 FL (7.4-10.4); NEUT# 3.64 X1000 (1.4-6.5); NEUT% 49.1 % (42.2-75.2); PLT 261 X1000 (130-400); RBC 4.89 XMIL (4.7-6.1); RDW 14.7 % (11.5-14.5)
[2019-03-31] MEDS: IMDUR PO SCH (08:45)
[2019-03-31] MEDS: ASPIRIN EC PO SCH (08:45)
[2019-03-31] MEDS: BRILINTA PO SCH ×3 (08:46→17:26)
[2019-03-31] MEDS: LIPITOR PO SCH (08:46)
[2019-03-31] MEDS: RANEXA PO SCH ×3 (08:46→17:27)
[2019-03-31] MEDS: COREG PO SCH ×2 (08:48→20:23)
--- NOTE | 2019-03-31 08:55 | CARDIOLOGY PROGRESS NOTE ---
DATE: 03/31/2019 CHIEF COMPLAINT: Chest pain. SUBJECTIVE: Mr. Sanford is resting more comfortably today. He has not had any chest pain. Yesterday, his resting technetium study showed an extensive inferior and inferolateral scar consistent with the occlusion of the dominant right coronary artery. He has not had any arrhythmias overnight. OBJECTIVE: VITAL SIGNS: Temperature 97.4 degrees, pulse 57, respirations 20, blood pressure 109/75. GENERAL: He is awake, alert, oriented, in no distress. HEENT: Unremarkable. Poor dentition. NECK: Neck veins are not distended. CHEST: Diminished breath sounds at bases with some scattered rhonchi. HEART: Sounds are regular and rhythmic. No significant gallop or murmur. ABDOMEN: Nontender. EXTREMITIES: Showed decreased pulses. No peripheral edema. NEUROLOGICAL: Follows commands. Moves 4 extremities. BLOOD WORK: His troponin levels were checked 4 times. They were all negative. ProBNP was minimally elevated at 282. The upper normal limits 177 mcg/mL. BUN and creatinine were normal. Hemoglobin 13.7, platelet count is normal. IMPRESSION: 1. Patient with chest pain, question of unstable angina. The patient at this time does not seem to have myocardial infarction. His EKG has not evolved. 2. History of being a tobacco user. 3. Status post AICD. RECOMMENDATIONS: At this time, I will suggest to do a Thallium viability study looking for any significant amount of myocardium that might be hibernating. If there is a significant amount of such myocardium, then I could make the case to refer the patient to the Cardiovascular surgeon for a single graft to the distal right coronary artery. Further recommendations forthcoming. cc: Benji Grimm MD [facility]
--- NOTE | 2019-03-31 13:36 | Diag Imaging Result Document ---
PROCEDURE NAME: MYOCARDIAL PERFU SCAN, REST - 03/30/2019 INDICATION: Chest pain, coronary artery disease. PROCEDURES PERFORMED: Rest myocardial perfusion imaging. PROCEDURE IN DETAIL: Mr. Sanford was brought to the nuclear laboratory and had a resting study performed with injection of 30.9 mCi of technetium-99m sestamibi with the usual imaging protocol utilized. FINDINGS: 1. No evidence of abnormal extracardiac uptake. 2. Rest perfusion imaging demonstrates a large size, severe intensity, fixed defect in the distal inferolateral, mid inferolateral, basal inferolateral, and portions of the inferior wall. This appears most consistent with infarct. 3. Reduced ejection fraction calculated at 43% with an end-diastolic volume of 97 and end- systolic volume of 55. There is akinesis of the inferolateral wall. cc: MD Jahaira Lopez PA
[2019-03-31] MEDS: FLEXERIL PO SCH ×2 (18:16→20:24)
--- NOTE | 2019-03-31 18:57 | PROGRESS NOTE ---
DATE: 03/31/2019 INTERVAL HISTORY: He underwent nuclear medicine myocardial perfusion resting scan which had detected scar and akinesia of inferolateral and inferior wall. He has been undergoing now thallium viability scan. SUBJECTIVE: The patient still continues to complain of intermittent left-sided chest pain at rest. On reviewing of MAR summary, it is listed that he has taken multiple doses of morphine which helps him some occasionally, but the pain recurs. Currently, he is denying any shortness of breath or palpitation. We discussed about nuclear medicine myocardial perfusion scan. We also discussed about follow-up with the final viability scan tomorrow. VITALS: Temperature 97.8 degrees, pulse 54, respiratory 20, blood pressure 106/67, saturating 96% on nasal cannula. PHYSICAL EXAMINATION: General: Does not appear in any acute distress. Oral cavity is moist. Lungs: Air entry bilaterally equal. No wheeze, rhonchi, or crackles. Cardiovascular: S1, S2 normal. No murmur, rub, or gallop. He, on my today's examination, does have localized chest wall tenderness on the left side. Abdomen: Soft, nontender. Extremities: No lower extremity edema. Neck: Hepatojugular reflex is negative. Neurologic: He is alert and oriented x3. LABS: His CBC is unremarkable. ASSESSMENT AND PLAN: 1. Unstable angina. Continue his home aspirin, ticagrelor, high-dose atorvastatin, carvedilol, therapeutic enoxaparin, isosorbide, ranolazine and follow up with the thallium viability scan. Nuclear medicine resting scan did detect scar in multiple portions of inferolateral, inferobasal and mid inferolateral wall. I will also give him as needed morphine and I will give him some muscle relaxants to help with the localized chest pain. 2. Others continue mirtazapine at nighttime with alprazolam for anxiety and insomnia. DISPOSITION: Based on thallium viability scan, the cardiology team would recommend either surgical evaluation versus maximization of medical therapy which he is already on. Plan of care discussed with him. All of his questions were answered. cc: Corey Crooks MD
[2019-03-31] MEDS: REMERON PO SCH (20:24)
[2019-04-01] MEDS: PRILOSEC PO SCH (06:07)
[2019-04-01] MEDS: FLEXERIL PO SCH ×3 (06:07→22:40)
[2019-04-01] MEDS: MORPHINE IV PRN ×2 (06:08→11:19)
[2019-04-01] MEDS: LOVENOX SUBQ SCH (06:08)
[2019-04-01 07:03] LABS: AGAP 11; BUN 18 mg/dL (8-22); CALCIUM 9.3 mg/dL (8.8-10.2); CHLORIDE 104 mmol/L (98-107); COSMO 283; CREATININE 1.1 mg/dL (0.7-1.2); ESTIMATED GFR > 60; GLUCOSE 103 mg/dL (70-104); POTASSIUM 3.9 mmol/L (3.5-5.1); SODIUM 141 mmol/L (136-145); TCO2 26 mmol/L (25-35)
--- NOTE | 2019-04-01 08:06 | CARDIOLOGY PROGRESS NOTE ---
DATE: 04/01/2019 CHIEF COMPLAINT: Chest pain. SUBJECTIVE: Mr. Sanford has felt better since he was admitted to the hospital. He is not having anymore chest pain. He just feels tired. OBJECTIVE: Vital signs: Blood pressure 122/67, temperature 97.6, pulse 50, respirations 16. General: The patient is awake, alert, oriented, no distress. HEENT: Unremarkable. Chest: Sounds fairly clear to auscultation and percussion. Heart: Sounds are regular and rhythmic. I do not hear a gallop or murmur. Abdomen: His abdomen is nontender. Extremities: Show no edema. Neurologic exam: Follows commands, moves all 4 extremities. BLOOD WORK: Sodium 141, potassium 3.9, BUN 18, creatinine 1.1. His 12-lead EKG from yesterday morning shows sinus bradycardia, left axis deviation, and a diffuse T wave abnormality especially in the inferior leads. There is an inferior scar. The scar extends to the apex. IMPRESSION: 1. Patient who presented really with unstable angina pectoris precipitated by effort. At this time, he has ruled out for myocardial infarction and he is feeling better. 2. History of an extensive myocardial infarction with stents to left anterior descending and right coronary artery with complete occlusion of the right coronary artery. 3. History of tobacco abuse. 4. Status post automatic implantable cardioverter-defibrillator for prevention of sudden . RECOMMENDATIONS: At this time, I awaiting for the final picture of the thallium viability study. If indeed there is significant viability, then I will contact the Cardiovascular Surgical team in [place] and request evaluation for possible single vein graft or arterial conduit to the inferior wall of the left ventricle whenever the vessel can be grafted. Otherwise, the patient has been instructed to quit smoking, follow a very healthy lifestyle. His chest x-ray did not show any lung abnormality, however, he is concerned about his shortness of breath. Perhaps, a pulmonary function test might be considered at some point. Further advice will be forthcoming. cc: Benji Grimm MD
[2019-04-01] MEDS: RANEXA PO SCH ×2 (09:13→17:37)
[2019-04-01] MEDS: IMDUR PO SCH (09:13)
[2019-04-01] MEDS: LIPITOR PO SCH (09:13)
[2019-04-01] MEDS: BRILINTA PO SCH ×2 (09:13→17:37)
[2019-04-01] MEDS: ASPIRIN EC PO SCH (09:14)
[2019-04-01] MEDS: COREG PO SCH ×2 (09:14→22:40)
[2019-04-01] MEDS ORDERED: ZOSTRIX TOP ONE (15:23)
[2019-04-01] MEDS: ULTRAM PO PRN ×2 (15:34→22:40)
--- NOTE | 2019-04-01 16:54 | PROGRESS NOTE ---
DATE: 04/01/2019 INTERVAL HISTORY: His viability scan is pending. He is still complaining of chest pain. He is denying any new complaints, shortness of breath or palpitations. His chest pain is easily reproducible on pressure on the chest. We discussed about stopping intravenous morphine, giving him Flexeril, and also giving him tramadol for his chest pain. VITAL SIGNS: Temperature 97.7 degrees, pulse 58, respiratory rate 16, blood pressure 109/79, saturating 97% room air. PHYSICAL EXAMINATION: General: Does not appear in any acute distress. HEENT: Oral cavity is moist. Lungs: Air entry bilaterally equal. No wheeze, rhonchi, crackles. Cardiovascular: S1, S2 normal. No murmur or gallop. Abdomen: Soft, nontender. He does have significant chest wall tenderness. No hepatojugular reflex. Extremities: No lower extremity edema. Neurologic: He is alert and oriented x3. ASSESSMENT AND PLAN: 1. Unstable angina. Continue home aspirin, ticagrelor, high-dose atorvastatin, carvedilol, and give him a final dose of therapeutic enoxaparin. Continue isosorbide, ranolazine, and follow up viability scan. I am awaiting Cardiology final recommendation. Nuclear medicine testing did detect scar large severe intensity in distal inferolateral, mid inferolateral, and basal inferolateral, and inferior wall with an ejection fraction of 43%. He is already status post AICD. 2. Others. Continue mirtazapine at nighttime and alprazolam for anxiety insomnia. 3. Disposition. Awaiting final cardiology recommendation before discharging him home or transferring him to [facility] for possible bypass. Plan of care discussed with him. Meanwhile, I will stop his IV morphine, start him on tramadol, continue cyclobenzaprine, and will give him topical capsaicin. cc: Corey Crooks MD
[2019-04-01] MEDS ORDERED: LOVENOX SUBQ ONE (17:00)
--- NOTE | 2019-04-01 20:35 | Diag Imaging Result Document ---
PROCEDURE NAME: MYOCARDIAL PERFU SCAN, REST - 03/31/2019 RESTING THALLIUM INTERPRETATION: SUMMARY: The patient was administered 3.8 millicuries of thallium 201 on 03/31/2019. After which, resting cardiac images were obtained shortly after injection, at 4 hours, and again at 24 hours. SPECT images were reconstructed in the short, horizontal, and vertical long axis. Review of these images demonstrated a medium-sized area of severely diminished activity in the basal and mid inferolateral region of left ventricle on initial images, which remains unchanged on subsequent images at 4 hours and 24 hours, and mid inferolateral wall of the left ventricle on initial images, which appears unchanged on 4-hour images. The 24-hour images demonstrate a small amount of partial reversibility involving the very basal area of this region, but defect remains largely fixed at 24 hours. CONCLUSIONS: The 24-hour thallium study demonstrates a medium-size area of severely diminished activity in the basal and mid inferolateral wall of left ventricle, which remains predominantly fixed with only a small amount of uptake in the basal inferolateral wall on 24-hour images. Result is most consistent with predominant scar in the basal and mid inferolateral region of left ventricle with a very small amount of viability in the more basal aspect of this region. cc: MD Benji Johnson MD
[2019-04-01] MEDS: REMERON PO SCH (22:39)
[2019-04-02] MEDS ORDERED: ZOSTRIX TOP PRN (06:00)
[2019-04-02] MEDS: PRILOSEC PO SCH (06:13)
[2019-04-02] MEDS: FLEXERIL PO SCH (06:13)
[2019-04-02] MEDS: COREG PO SCH (09:55)
[2019-04-02] MEDS: RANEXA PO SCH (09:56)
[2019-04-02] MEDS: BRILINTA PO SCH (09:56)
[2019-04-02] MEDS: ASPIRIN EC PO SCH (09:56)
[2019-04-02] MEDS: LIPITOR PO SCH (09:56)
[2019-04-02] MEDS: IMDUR PO SCH (09:56)
[2019-04-02 11:34] VITALS: BP 105/71
--- NOTE | 2019-04-02 11:35 | DISCHARGE SUMMARY ---
ADMISSION DATE: 03/30/2019 DISCHARGE DATE: 04/02/2019 DISCHARGE DISPOSITION: Home. DISCHARGE CONDITION: He denies any more chest pain. There is no localized chest tenderness. He denies any shortness of breath at rest. DISCHARGE DIAGNOSES: 1. Unstable angina. 2. Left-sided acute costochondritis. OTHER DIAGNOSES: 1. History of coronary artery disease and myocardial infarction with multiple right coronary artery stents in October of 2018. 2. History of congestive heart failure, status post AICD. 3. Essential hypertension. 4. Hyperlipidemia. 5. Anxiety and insomnia. DISCHARGE MEDICATIONS: 1. Trazodone 50 mg at nighttime. 2. Mirtazapine 30 mg at nighttime. 3. Atorvastatin 80 mg daily. 4. Ticagrelor 90 mg b.i.d. 5. Carvedilol 6.25 mg b.i.d. 6. Aspirin 81 mg daily. 7. Isosorbide mononitrate 60 mg daily. 8. Ranolazine 1000 mg b.i.d. 9. Nitroglycerin 0.4 mg sublingual every 5 minutes. 10. Cyclobenzaprine 5 mg every 8 hours as needed for muscle spasm. 11. Omeprazole 20 mg daily. 12. Tramadol 50 mg every 6 hours as needed for chest pain not relieved on capsaicin cream. 13. Alprazolam 0.25 mg daily. 14. Capsaicin 0.075% cream 1 application every 8 hours as needed for left-sided chest pain. VITAL SIGNS: At the time of discharge, temperature 97.5 degrees, pulse 57, respiratory rate 20, blood pressure 110/86 and saturating 97% room air. PHYSICAL EXAMINATION: General: He does not appear in any acute distress. HEENT: Oral cavity is moist. Lungs: Air entry bilaterally equal. No wheeze, rhonchi, or crackles. Cardiovascular: S1, S2 normal. No murmur or gallop. He does not have chest wall tenderness over the left chest wall precordium. Abdomen: Soft and nontender. Extremities: No lower extremity edema. Neurologic: He is alert and oriented x3. LABORATORY: Significant labs during hospital admission and discharge, WBC 7.4, hemoglobin 13.7, platelets 261,000, potassium 3.9, BUN 18, creatinine 1.1. SIGNIFICANT MICROBIOLOGY DURING HOSPITAL ADMISSION: None. SIGNIFICANT IMAGING DURING HOSPITAL ADMISSION: Chest x-ray on 03/30 did not have any acute abnormality. Myocardial perfusion scan at rest did not have any evidence of abnormal extracardiac uptake. Rest perfusion imaging demonstrated large sized severe intensity fixed defect in the distal inferolateral, mid inferolateral, basal inferolateral portions of the inferior wall most consistent with infarct with ejection fraction of 43%, and diastolic volume of 97 and systolic volume of 55. There is akinesia of the inferolateral wall. Myocardial perfusion scan with nuclear medicine with thallium viability imaging scan demonstrated a medium- sized area of severely diminished activity in the basal and mid inferolateral wall of the left ventricle which remained predominantly fixed with only a small amount of uptake in the basal inferolateral wall on 24 hour images. Results were most consistent with predominant scar in the basal mid to inferolateral region of the left ventricle with very small amount of viability in the more basal aspect of this region. His EKG on 03/30 had normal sinus rhythm, left axis deviation, possible lateral infarct age undetermined, inferior infarct. HOSPITAL COURSE SUMMARY: Mr. Sanford is a 58 year old man with past medical history of coronary artery disease requiring 3 stents in the RCA, and 1 stent in LAD in October of 2018, congestive heart failure with reduced ejection fraction status post AICD, who came in with chief complaints of left-sided precordial chest pain with left shoulder and arm radiation associated with diaphoresis and shortness of breath which started when he was sitting on the couch. Apparently, he also has been working out in his backyard, pulling out shrubs and branches of trees following which he had started feeling uncomfortable. Apparently, he had a blockage of his RCA stent in the past with collateral circulation. He had blockage of the RCA stent in the past, and was considering his anatomy. It was decided to manage him medically in the past. At this time, his symptoms were consistent for unstable angina. He was given 325 mg of aspirin in the emergency room and hospitalist team was consulted for further management. He was continued on all of his home medications, and was started on 1 mg/kg enoxaparin and Cardiology team was consulted. He underwent resting image myocardial perfusion scan initially, and later on thallium viability scan which had detected he had a fixed scar without much of viable myocardium. Considering his prior history, it was decided to just manage him medically and have him follow up with outpatient cardiology. He was strongly advised about avoiding excessive physical exertion. During hospital admission, he also had significant reproducibility of his chest pain on palpation where he had extreme tenderness over the precordium and left chest region, so he was started on muscle relaxants topical anti-inflammatory cream which helped him. At the time of discharge, detailed discharge instructions were provided to him at bedside. TIME SPENT: More than 30 minutes spent in discharging this patient. cc: Corey Crooks MD MTDD
--- NOTE | 2019-04-02 13:46 | CARDIOLOGY PROGRESS NOTE ---
DATE: 04/02/2019 CHIEF COMPLAINT: Chest pain. SUBJECTIVE: Mr. Sanford is feeling definitely better. He is not having anymore chest pains. OBJECTIVE: Vital signs: Blood pressure is 110/86, temperature 97.5, pulse 67, respirations 20. General: He is awake, alert, oriented. HEENT: Unremarkable. Chest: Diffusely diminished breath sounds, no rales. Heart: Sounds are regular and rhythmic. No gallop or murmur. Abdomen: Nontender, no hepatomegaly. Extremities: Showed no edema. Neurologic exam: Follows commands, moves all 4 extremities. BLOOD WORK: Blood work yesterday, his BUN and creatinine and electrolytes were all normal. Thallium viability study was completed. It shows essentially a large inferior wall scar extending into the inferolateral wall with very minimal amount of viability. IMPRESSION: 1. Unstable angina pectoris, which has become stabilized. 2. Severe coronary heart disease, previous inferior wall myocardial infarction with multiple stents to the right coronary artery subsequently occluded. 3. Tobacco user. 4. Status post automatic implantable cardioverter-defibrillator. RECOMMENDATIONS: 1. At this time given that there is no significant viability of the inferior wall defect, I do not believe that this patient would benefit by pursuing aggressive surgical revascularization of the distal right coronary artery. 2. At this time, I believe that it is best to continue maximum medical therapy and he needs to follow up with established physicians. 3. Unfortunately, the patient from the functional viewpoint is going to be extremely limited probably to a functional class 3. The patient may be discharged home today. cc: Benji Grimm MD
== END 2019-04-02 11:49 | disposition home or self-care (01) ==
LOC: 3N 09:20 → ED 09:20
PROVIDERS: ATTEND Internal Medicine
CPT/HCPCS: 71020; 71046; 78451; 80048; 80053; 82550; 83880; 84484; 85025; 85610; 85730; 93005; 93010; 96374; 99285; A9270; A9500; A9505; J1170; J1650; J2270; J2405

== ENCOUNTER 2019-04-20 09:26 | Observation (INO) ==
--- NOTE | 2019-04-20 09:38 | EKG Report ---
Test Performed on : 04/20/2019 09:30:03 AM Test Reason : CP Blood Pressure : / mmHG Vent. Rate : 068 BPM Atrial Rate : 068 BPM P-R Int : 146 ms QRS Dur : 096 ms QT Int : 438 ms P-R-T Axes : 036 -50 -12 degrees QTc Int : 465 ms Normal sinus rhythm. Left axis deviation Possible Lateral infarct , age undetermined Inferior infarct (cited on or before 08-OCT-2018) Abnormal ECG When compared with ECG of 31-MAR-2019 06:50, Borderline criteria for Lateral infarct are now present T wave inversion less evident in Inferior leads Unconfirmed Result
[2019-04-20] MEDS ORDERED: NITROGLYCERIN TOP ONE (09:43)
--- NOTE | 2019-04-20 09:45 | PROVIDER DOCUMENTATION ---
HPI-Chest Pain - General Chief Complaint: Chest Pain Stated Complaint: CHEST PAIN/SOB Time Seen by Provider: 04/20/19 09:34 Source: patient, EMS Allergies/Adverse Reactions: Patient Allergies Allergy/AdvReac Type Severity Reaction Status Date / Time No Known Allergies Allergy Verified 03/30/19 09:42 Home Medications: Home Medication List Medication Instructions Recorded Confirmed Last Taken Type Aspirin [Ecotrin] 81 mg PO DAILY 10/08/18 03/30/19 10/07/18 History Ticagrelor [Brilinta] 90 mg PO BID 10/08/18 03/30/19 10/07/18 History Alprazolam [Xanax] 0.25 mg PO DAILY PRN #10 tab 10/12/18 03/30/19 Unknown Rx Nitroglycerin Sl [Nitroglycerin] 0.4 mg SL Q5M PRN PRN #10 tab 10/12/18 03/30/19 Unknown Rx Omeprazole [Prilosec] 20 mg PO DAILY@0700 #90 cap 10/12/18 03/30/19 Unknown Rx Atorvastatin Calcium 80 mg PO DAILY 03/30/19 03/30/19 Unknown History Carvedilol 6.25 mg PO BID 03/30/19 03/30/19 Unknown History Isosorbide Mononitrate [Isosorbide 60 mg PO DAILY 03/30/19 03/30/19 Unknown History Mononitrate ER] Mirtazapine 30 mg PO QHS 03/30/19 03/30/19 Unknown History Ranolazine [Ranexa] 1,000 mg PO BID 03/30/19 03/30/19 Unknown History Trazodone [Desyrel] 50 mg PO QHS 03/30/19 03/30/19 Unknown History Capsaicin 0.075% Cream [Zostrix] 1 applic TOP Q8H PRN #1 tube 04/02/19 Unknown Rx Cyclobenzaprine [Flexeril] 5 mg PO Q8HR #10 tab 04/02/19 Unknown Rx Tramadol [Ultram] 50 mg PO Q6H PRN PRN #15 tab 04/02/19 Unknown Rx - History of Present Illness-CP Nature of Presenting Problem: A 58 Y/O MALE PRESENTS WITH EMS WITH C/O CP AND SOB. PER THE PT THE SYMPTOMS STARTED 30-40 MINUTES BEFORE. THE CP IS MOSTLY ON THE LEFT SIDE AND RADIATES TO THE LEFT SIDE OF NECK AND TO BOTH ARMS. ALSO HAS SWEATING ASSOCIATED WITH IT. HAS MILD SOB. HAS BEEN HAVING SOME PRODUCTIVE COUGH. DENIES ANY PAIN WITH DEEP BREATHS BUT SAYS IT HURTS WHEN PRESSURE APPLIED TO CHEST WALL. DENIES ANY FEVER OR CHILLS OR ANY UPPER OTHER UPPER RESP SYMPTOMS. PT WAS FIXING BREAKFAST WHEN HIS SYMPTOMS STARTED. PT WAS RECENTLY IN THE HOSPITAL FOR SIMILAR SYMPTOMS. Location: reports: central Chest Pain Radiation: reports: arms (BILATERAL), neck (LEFT) Quality of Pain: reports: sharp Severity in ED: moderate Onset/Duration: abrupt, 1/2 hour ago Timing: still present Context/Activities at Onset: reports: light activity Modifying Factors: improves with: nothing Associated Symptoms: reports: shortness of breath. denies: abdominal pain, back pain, diaphoresis, dizziness, edema, fatigue, fever/chills, headache, heartburn, nausea, syncope, vomiting, weakness Nitro Today/Relief: 0.4 mg x 1 (TOOK ONE AT HOME, NO RELIEF), provided by ED Aspirin Treatment Today: 325 mg x 1, provided at home Prior Chest Pain/Cardiac Workup: reports: cardiac cath, heart attack Similar Symptoms Previously?: Yes Recently Seen Here or By Another Healthcare Provider: Yes Review of Systems - Adult - REVIEW OF SYSTEMS - ADULT Constitutional: denies: no symptoms reported Eyes: denies: no symptoms reported Ears, Nose, Mouth & Throat: denies: no symptoms reported Cardiovascular: reports: see HPI Respiratory: reports: see HPI Gastrointestinal: denies: no symptoms reported Genitourinary: denies: no symptoms reported Musculoskeletal: denies: no symptoms reported Integumentary: denies: no symptoms reported Neurological: denies: no symptoms reported Psychiatric: denies: no symptoms reported Endocrine: denies: no symptoms reported Hematologic/Lymphatic: denies: no symptoms reported Allergic/Immunologic: denies: no symptoms reported Past History - Adult - PAST MEDICAL HISTORY-ADULT Review of Records: reports: Old Records Reviewed, Nursing Assessment Review, Medications Reviewed, Social history reviewed & non-contributory. Major Childhood Illnesses: reports: denies history Cardiovascular: reports: denies history Respiratory: reports: denies history Gastrointestinal: reports: denies history Obstetrical/Gynecological: reports: denies history Genitourinary: reports: denies history Musculoskeletal: reports: denies history Neurological: reports: denies history Psychiatric: reports: bipolar, psychiatric problems Endocrine/Immune: reports: denies history Other Conditions: reports: denies history - PRIOR SURGERIES/PROCEDURES Surgical/Procedure History: reports: none - PRIOR HOSPITALIZATIONS Prior Hospitalizations: reports: none - IMMUNIZATION STATUS Childhood Immunizations: See Nurse Assessment Flu Vaccine: See Nurse Assessment - FAMILY HISTORY Family History: reviewed, not pertinent Physical Exam-General - PHYSICAL EXAM-ADULT Initial Vital Signs Reviewed: Yes - CONSTITUTIONAL General Appearance: appears well, alert, mild distress - EYES Eyes: PERRL/EOMI - HEAD, EARS, NOSE, MOUTH & THROAT HENMT: normocephalic/atraumatic, moist mucous membranes, normal ENT inspection, pharynx normal - NECK Neck: full range of motion, supple, normal inspection - RESPIRATORY Respiratory: lungs clear, normal breath sounds. negative: chest non-tender, no respiratory distress, no accessory muscle use - CARDIOVASCULAR Cardiovascular: regular rate, rhythm, no edema, no JVD, no murmur - GASTROINTESTINAL (ABDOMEN) Abdominal Exam: non tender, soft - MUSCULOSKELETAL Back Exam: normal inspection Peripheral Pulses: radial (R): 2+, radial (L): 2+ - SKIN Integumentary: normal color, warm/dry - NEUROLOGIC Neurologic: grossly normal - PSYCHIATRIC Psych/Mental Status: normal thought content, normal thought process, oriented x 3, anxious - HEART Score HEART Score: History: Moderately Suspicious HEART Score: ECG: Non-Specific Repolarization Disturbance/LBBB/PM HEART Score: Age: 45-65 Years HEART Score: Risk Factors for Atherosclerotic Disease: > or = 3 Risk Factors or History of Atherosclerotic Disease HEART Score: Troponin: < or = Normal Limit Total HEART Score:: 5 Progress - PLAN OF CARE/RESULTS Progress/Plan/Lab Results: Vital Signs - 8 hr 04/20/19 09:34 04/20/19 09:35 04/20/19 10:00 Temperature 98.3 F Pulse Rate 63 71 69 Respiratory Rate 27 H 21 32 H Blood Pressure 126/75 131/77 O2 Sat by Pulse Oximetry 97 99 98 Laboratory Results - last 24 hr 04/20/19 04/20/19 04/20/19 09:43 09:43 09:43 WBC 7.67 RBC 4.95 Hgb 14.2 Hct 42.3 MCV 85.5 MCH 28.7 MCHC 33.6 RDW Std Deviation 14.7 H Plt Count 231 MPV 9.8 Neut % (Auto) 56.9 Lymph % (Auto) 30.2 Warrick % (Auto) 7.2 Eos % (Auto) 5.3 Baso % (Auto) 0.4 Neut # (Auto) 4.36 Lymph # (Auto) 2.32 Warrick # (Auto) 0.55 Eos # (Auto) 0.41 Baso # (Auto) 0.03 D-Dimer, Quantitative < 0.27 Sodium 136 Potassium 3.7 Chloride 104 Carbon Dioxide 23 L Anion Gap 9 BUN 15 Creatinine 0.9 Estimated GFR/1.73 m2 > 60 BUN/Creatinine Ratio 17 Glucose 126 H Calculated Osmolality 274 Calcium 9.3 Total Bilirubin 0.65 AST 17 ALT 20 Alkaline Phosphatase 68 Creatine Kinase Troponin T Hzf-N-Faiiylrnxye Pept Total Protein 6.5 Albumin 4.2 Globulin 2.3 Albumin/Globulin Ratio 1.8 Urine Source Urine Color Urine Turbidity Urine pH Ur Specific [place] Urine Protein Ur Glucose (Stick) Ur Ketones (Stick) Urine Blood Urine Nitrite Urine Bilirubin Urobilinogen Dipstick Urine Leukocytes Urine WBC (Auto) Urine RBC (Auto) U Epithel Cells (Auto) Urine Bacteria (Auto) Urine Opiates Screen Ur Oxycodone Screen Ur Methadone, Qual Ur Barbiturates Screen Ur Phencyclidine Scrn Ur Amphetamines Screen U Benzodiazepines Scrn Urine Cocaine Screen U Cannabinoids Screen 04/20/19 04/20/19 04/20/19 09:43 09:43 09:43 WBC RBC Hgb Hct MCV MCH MCHC RDW Std Deviation Plt Count MPV Neut % (Auto) Lymph % (Auto) Warrick % (Auto) Eos % (Auto) Baso % (Auto) Neut # (Auto) Lymph # (Auto) Warrick # (Auto) Eos # (Auto) Baso # (Auto) D-Dimer, Quantitative Sodium Potassium Chloride Carbon Dioxide Anion Gap BUN Creatinine Estimated GFR/1.73 m2 BUN/Creatinine Ratio Glucose Calculated Osmolality Calcium Total Bilirubin AST ALT Alkaline Phosphatase Creatine Kinase 63 Troponin T < 0.010 Qyb-I-Mjwgsnfkupi Pept 253 H Total Protein Albumin Globulin Albumin/Globulin Ratio Urine Source Urine Color Urine Turbidity Urine pH Ur Specific [place] Urine Protein Ur Glucose (Stick) Ur Ketones (Stick) Urine Blood Urine Nitrite Urine Bilirubin Urobilinogen Dipstick Urine Leukocytes Urine WBC (Auto) Urine RBC (Auto) U Epithel Cells (Auto) Urine Bacteria (Auto) Urine Opiates Screen Ur Oxycodone Screen Ur Methadone, Qual Ur Barbiturates Screen Ur Phencyclidine Scrn Ur Amphetamines Screen U Benzodiazepines Scrn Urine Cocaine Screen U Cannabinoids Screen 04/20/19 04/20/19 10:26 10:26 WBC RBC Hgb Hct MCV MCH MCHC RDW Std Deviation Plt Count MPV Neut % (Auto) Lymph % (Auto) Warrick % (Auto) Eos % (Auto) Baso % (Auto) Neut # (Auto) Lymph # (Auto) [place]rick # (Auto) Eos # (Auto) Baso # (Auto) D-Dimer, Quantitative Sodium Potassium Chloride Carbon Dioxide Anion Gap BUN Creatinine Estimated GFR/1.73 m2 BUN/Creatinine Ratio Glucose Calculated Osmolality Calcium Total Bilirubin AST ALT Alkaline Phosphatase Creatine Kinase Troponin T Pgo-U-Txittbymsff Pept Total Protein Albumin Globulin Albumin/Globulin Ratio Urine Source CLEAN CATCH Urine Color YELLOW Urine Turbidity CLEAR Urine pH 5.5 Ur Specific [place] 1.016 Urine Protein TRACE A Ur Glucose (Stick) NEGATIVE Ur Ketones (Stick) NEGATIVE Urine Blood NEGATIVE Urine Nitrite NEGATIVE Urine Bilirubin NEGATIVE Urobilinogen Dipstick NORMAL Urine Leukocytes NEGATIVE Urine WBC (Auto) <10 Urine RBC (Auto) <10 U Epithel Cells (Auto) <10 Urine Bacteria (Auto) NEGATIVE Urine Opiates Screen NONE DETECTED Ur Oxycodone Screen NONE DETECTED Ur Methadone, Qual NONE DETECTED Ur Barbiturates Screen NONE DETECTED Ur Phencyclidine Scrn NONE DETECTED Ur Amphetamines Screen NONE DETECTED U Benzodiazepines Scrn NONE DETECTED Urine Cocaine Screen NONE DETECTED U Cannabinoids Screen NONE DETECTED Orders Category Date Time Status CHEST-1 VIEW [RAD] Stat Exams 04/20/19 09:34 Completed CBC WITH ELECTRONIC DIFF [HEME] Stat Lab 04/20/19 09:43 Completed COMPREHENSIVE METABOLIC PANEL [CHEM] Stat Lab 04/20/19 09:43 Completed Cardiac Profile [CK PROFILE] [SP CHEM] Stat Lab 04/20/19 09:43 Completed D-DIMER [COAG] Stat Lab 04/20/19 09:43 Completed PRO B-NATRIURETIC PEPTIDE Stat Lab 04/20/19 09:43 Completed TROPONIN T Stat Lab 04/20/19 09:43 Completed UA NIMS W/REFLEX CULT [URINALYSIS] Stat Lab 04/20/19 10:26 Completed URINE DRUG SCREEN Stat Lab 04/20/19 10:26 Completed Ketorolac [Toradol] Med 04/20/19 10:55 Discontinued 30 mg IM NOW ONE Nitroglycerin Med 04/20/19 09:43 Discontinued 0.5 inch TOP NOW ONE EKG [EKG] Stat Ther 04/20/19 09:34 Draft Result Diagrams: 04/20/19 09:43 04/20/19 09:43 - REASSESSMENT Reassessment #1 Time Reassessed: 11:55 Status: improving - CONSULTS/PCP/HOSPITALIST Notification #1 *Consult/PCP/Hospitalist*: DR SUMMERS Time Discussed: 12:10 Consult Disposition: Admit (ADVISED ADMISSION TO HOSPITALIST, FOR OBSERVATION) #2 Consult: D/W ABILIO, ADMIT TO DR NGUYEN Time Discussed: 12:20 Consult Disposition: Admit Departure - Departure Date of Disposition Decision: 04/20/19 Time of Disposition Decision: 12:24 DIAGNOSIS: Chest pain, Unstable angina Disposition: ADMITTED INPATIENT 09 Certified Medical Emergency: Emergent Condition: Stable Additional Freetext Instructions: ED Follow Up Instructions: You have been treated by a care provider in the Emergency Department. These in structions are being provided to you so you can have an understanding of how to care for yourself upon discharge. Upon discharge from the Emergency Department, you are responsible for making arrangements for follow-up care by a physician of your choice. Take all prescribed medications as directed. Return to the Emergency Department immediately for any new or worsening symptoms. You may call the Physician Referral phone number at [phone] to obtain a list of Physicians who are taking new patients. Referrals and Follow-Ups: Sarah Caraballo [Primary Care Provider] - Discharge Education: Costochondritis, [id number], Nonspecific Chest Pain - Critical Care Note This patient required my direct & personal management of CC.: No Attestation - Physician/ ANGI Attestation Patient care was provided by Advanced Practice Provider:: No The physician spent face to face time with patient:: Yes Advanced Practice Provider documentation review:: Supervising physician onsite and consulted in the evaluation and care of this patient. The physician did have a face to face encounter with the patient.
[2019-04-20 09:51] LABS: BASO# 0.03 X1000 (0.0-0.2); BASO% 0.4 % (0.0-0.8); EOS# 0.41 X1000 (0.0-0.7); EOS% 5.3 % (0.0-10.0); HEMATOCRIT 42.3 % (42.0-52.0); HEMOGLOBIN 14.2 g/dL (14.0-18.0); LYMPH# 2.32 X1000 (1.2-3.4); LYMPH% 30.2 % (20.5-51.1); MCH 28.7 PG (27-31); MCHC 33.6 g/dL (33-37); MCV 85.5 FL (81-99); MONO# 0.55 X1000 (0.11-0.59); MONO% 7.2 % (1.7-9.3); MPV 9.8 FL (7.4-10.4); NEUT# 4.36 X1000 (1.4-6.5); NEUT% 56.9 % (42.2-75.2); PLT 231 X1000 (130-400); RBC 4.95 XMIL (4.7-6.1); RDW 14.7 % (11.5-14.5); WBC 7.67 X1000 (4.8-10.8)
--- NOTE | 2019-04-20 09:56 | Diag Imaging Result Doc PS360 ---
EXAM: CHEST-1 VIEW HISTORY: CP TECHNIQUE: Single view COMPARISON: 03/30/2019 FINDINGS: The lungs are well expanded. The heart is not enlarged. The vessels are not distended. There are no infiltrates. No effusion identified. Left lateral a left cold device. IMPRESSION: Stable chest. Electronically signed by Josemanuel Brower 04/20/2019 9:54 AM
[2019-04-20 10:07] LABS: AGAP 9; ALB/GLOB RATIO 1.8; ALBUMIN 4.2 g/dL (3.5-5.0); ALKALINE PHOSPHATASE 68 U/L (32-122); BUN 15 mg/dL (8-22); CALCIUM 9.3 mg/dL (8.8-10.2); CHLORIDE 104 mmol/L (98-107); COSMO 274; CREATININE 0.9 mg/dL (0.7-1.2); ESTIMATED GFR > 60; GLUCOSE 126 mg/dL (70-104); GOT 17 U/L (10-34); GPT 20 U/L (10-44); POTASSIUM 3.7 mmol/L (3.5-5.1); SODIUM 136 mmol/L (136-145); TCO2 23 mmol/L (25-35); TOTAL BILIRUBIN 0.65 mg/dL (0.20-1.00); TOTAL PROTEIN 6.5 g/dL (6.3-8.3)
[2019-04-20 10:35] LABS: URINE SOURCE CLEAN CATCH
[2019-04-20 10:40] LABS: BILIRUBIN URINE NEGATIVE (NEGATIVE); BLOOD URINE NEGATIVE (NEGATIVE); COLOR YELLOW; GLUCOSE URINE NEGATIVE (NEGATIVE); KETONE URINE NEGATIVE (NEGATIVE); LEUKOCYTES URINE NEGATIVE (NEGATIVE); NITRITE URINE NEGATIVE (NEGATIVE); PH URINE 5.5; PROTEIN URINE TRACE mg/dL (NEGATIVE); SP GRAVITY URINE 1.016; TURBIDITY URINE CLEAR (CLEAR); UROBILINOGEN URINE NORMAL (NORMAL)
[2019-04-20 10:42] LABS: UR EPITHELIAL CELLS <10 /HPF (<10); URINE BACTERIA NEGATIVE /HPF; URINE RBC <10 /HPF (<10); URINE WBC <10 /HPF (<10)
[2019-04-20] MEDS ORDERED: TORADOL IM ONE (10:55)
[2019-04-20 11:09] LABS: UR AMPHETAMINES QUAL NONE DETECTED (NONE DETECT); UR BARBITUATES QUAL NONE DETECTED (NONE DETECT); UR BENZODIAZEPIN QUAL NONE DETECTED (NONE DETECT); UR CANNABINOIDS QUAL NONE DETECTED (NONE DETECT); UR COCAINE QUAL NONE DETECTED (NONE DETECT); UR METHADONE QUAL NONE DETECTED (NONE DETECT); UR OPIATES QUAL NONE DETECTED (NONE DETECT); UR OXYCODONE QUAL NONE DETECTED (NONE DETECT); UR PCP QUAL NONE DETECTED (NONE DETECT)
--- NOTE | 2019-04-20 11:24 | ED EKG INTERP ---
This chart was entered by Kyleigh Ba Scribe, acting as scribe for Waldo Catalan MD. EKG Interpretation - EKG Time of EKG reading by physician:: 09:30 EKG Read and Signed by:: Waldo Catalan EKG Interpretation (*Must complete 3 of following elements*): Abnormal (inferior infarct, age undetermined) Rate: 68 Rhythm: normal sinus rhythm [place]: left GA Interval: normal Comments: possible lateral infarct, age undetermined; Attestation - Physician/ ANGI Attestation Patient care was provided by Advanced Practice Provider:: No The physician spent face to face time with patient:: Yes Advanced Practice Provider documentation review:: Supervising physician onsite and consulted in the evaluation and care of this patient. The physician did have a face to face encounter with the patient. This chart was documented by the indicated scribe, (Kyleigh Ba Scribe) and accurately reflects the services I performed and decisions made by Hossein hart Aslam A., MD, as attested by the provider's signature.
--- NOTE | 2019-04-20 12:41 | ED EKG INTERP ---
This chart was entered by Kyleigh Ba Scribe, acting as scribe for Waldo Catalan MD. EKG Interpretation - EKG Time of EKG reading by physician:: 12:30 EKG Read and Signed by:: Waldo Catalan EKG Interpretation (*Must complete 3 of following elements*): Abnormal (inferior infarct, age undetermined) Rate: 63 Rhythm: normal sinus rhythm [place]: left NM Interval: normal Comments: lateral infarct, age undetermined; Attestation - Physician/ ANGI Attestation The physician spent face to face time with patient:: Yes Advanced Practice Provider documentation review:: Supervising physician onsite and consulted in the evaluation and care of this patient. The physician did have a face to face encounter with the patient. This chart was documented by the indicated scribe, (Kyleigh Ba Scribe) and accurately reflects the services I performed and decisions made by Hossein hart Aslam A., MD, as attested by the provider's signature.
[2019-04-20] MEDS: MORPHINE IV ONE ×2 (12:50→13:18)
[2019-04-20] MEDS ORDERED: MORPHINE IM ONE (12:50)
--- NOTE | 2019-04-20 14:02 | HISTORY AND PHYSICAL ---
ADDENDUM REPORT This is a 58-year-old male with known CAD, I believe patient of Dr. Grimm'rahul who came in for typical chest pain. It is left-sided, radiating to his arms, neck. He does have CAD. His last catheterization in October showed occlusive disease of his RCA, which was decided to be just medical management alone. He came back in March for chest pain and had several scans including a viability scan which showed very little viability. The patient will be admitted. His exam is unremarkable. EKG does not show any significant issues. At this point, I am not sure what the next step is in evaluating his CAD, repeat catheterization versus stress test. We will let Cardiology make the decision. We will go up a little bit on his nitroglycerin. It looks like he is already on Ranexa, so he is kind of maximized on his therapy already, so we will defer to Cardiology to make major decisions on his further workup. We will rule him out and follow closely. This is a addendum history and physical. I saw the patient directly with the nurse practitioner, Wendi Severino. cc: Errol Cole MD
[2019-04-20] MEDS ORDERED: TYLENOL PO PRN (14:07)
[2019-04-20] MEDS ORDERED: ZOFRAN IV PRN (14:07)
--- NOTE | 2019-04-20 14:41 | HISTORY AND PHYSICAL ---
PRIMARY CARE PROVIDER: Dr. Sarah Caraballo. BANKING SERVICES CLERK: Dr. Walter, [facility]. CHIEF COMPLAINT: Chest pain. HISTORY OF PRESENT ILLNESS: Mr. Sanford is a 58-year-old gentleman who carries a past medical history of coronary artery disease status post stenting in October of 2018, recently admitted again for unstable angina and left-sided acute costochondritis. He did undergo further imaging that did not show any significant viability of the inferior wall defect and they decided to not pursue any aggressive surgical revascularization of his distal RCA, to continue with maximum medical therapy. He reported back to the ED today with left-sided chest pain, this started around 9:30 a.m., that radiated to bilateral arms. He did report that his heart rate was in the 30s this morning. However, he has been in normal sinus rhythm since arrival. Nothing has made the pain better. Nothing has made it worse. Initially it was 8/10 this a.m. It is now 5/10. He did report some associated nausea as well as weakness and dry mouth. No diaphoresis. He says at times he does feel like it is similar to his previous WA. We will admit him to PVC unit. Continue to follow Dr. Grimm's recommendations. PAST MEDICAL HISTORY: 1. History of coronary artery disease and WA with multiple right coronary artery stents in October 2018, as well as recent studies earlier this month. 2. History of congestive heart failure, status post AICD. 3. Essential hypertension. 4. Hyperlipidemia. 5. Anxiety and insomnia. 6. Probable intellectual impairment and neurocognitive disorder. The patient has been to [place] for that before. PAST SURGICAL HISTORY: 1. Left inguinal hernia repair by Dr. Austin. 2. Multiple stents to the RCA. FAMILY HISTORY: Denies any coronary artery disease. SOCIAL HISTORY: He has quit smoking. However, he was previously back in October smoking a half pack a day and had done so for 20 to 25 years. REVIEW OF SYSTEMS: Twelve-point review of systems completely negative except for those mentioned in HPI. ALLERGIES: No known drug allergies. HOME MEDICATIONS: Have not been verified. PHYSICAL EXAMINATION: VITAL SIGNS: Temperature is 98.3 degrees, heart rate 63, respirations 27, blood pressure 130/81, O2 is 96% on room air. GENERAL: Mr. Sanford is sitting up in bed, in no acute distress. HEENT: Atraumatic, normocephalic. PERRL. NECK: Supple. Trachea midline. CARDIOVASCULAR: S1, S2 appreciated. No murmurs, gallops, rubs noted. RESPIRATORY: Lung sounds clear bilaterally. GASTROINTESTINAL: Soft, nontender, nondistended. Positive bowel sounds 4 quadrants. NEUROLOGIC: Are alert and oriented x3. Follows commands. Moves all extremities. DIAGNOSTIC DATA: Chest x-ray: Stable chest. EKG: Normal sinus rhythm in the 60s. LABORATORY DATA: White count 7, hemoglobin and hematocrit 14 and 42, platelet count is 231,000. D-dimer less than 0.27. Sodium 136, potassium 3.7, BUN 15, creatinine 0.9, blood glucose is 126. Troponin less than 0.010. ProBNP 253. Urinalysis was negative. Toxicology screen negative. ASSESSMENT AND PLAN: 1. Unstable angina in a patient with known coronary artery disease, status post stenting to the RCA, with recent perfusion scan. We have consulted Cardiology. We will await their input. We will continue him on his regular cardiac medications that he was last discharged on and continue to trend his cardiac enzymes. Last echocardiogram back in October showed an EF of 55 to 60 percent. 2. Congestive heart failure history, status post AICD. Does not appear to be in any exacerbation. 3. Essential hypertension. Aware. 4. Hyperlipidemia. 5. Anxiety and insomnia. 6. Further recommendations to follow physician evaluation, laboratory and diagnostic data. Dictated by VINCE Flowers for Errol Cole MD cc: MD Kelton Waterman MD Valerie Wright [facility]
--- NOTE | 2019-04-20 15:46 | EKG Report ---
Test Performed on : 04/20/2019 12:30:01 PM Test Reason : no ekg order for muse Blood Pressure : / mmHG Vent. Rate : 063 BPM Atrial Rate : 063 BPM P-R Int : 154 ms QRS Dur : 092 ms QT Int : 430 ms P-R-T Axes : 050 -50 -18 degrees QTc Int : 440 ms Normal sinus rhythm. Left axis deviation Lateral infarct (cited on or before 14-OCT-2018) Inferior infarct (cited on or before 08-OCT-2018) Abnormal ECG When compared with ECG of 20-APR-2019 09:30, (Unconfirmed) Questionable change in initial forces of Lateral leads Unconfirmed Result
[2019-04-20] MEDS ORDERED: MORPHINE IV PRN (17:25)
[2019-04-20] MEDS ORDERED: MORPHINE IV ONE ×2 (17:27→17:35)
[2019-04-20] MEDS: RANEXA PO SCH (20:25)
[2019-04-20] MEDS: BRILINTA PO SCH (20:25)
[2019-04-20] MEDS: COREG PO SCH (20:26)
[2019-04-20] MEDS: NORVASC PO SCH (20:26)
--- NOTE | 2019-04-20 20:26 | CARDIOLOGY CONSULTATION ---
DATE: 04/20/2019 CONSULTATION REQUESTED BY: Hospitalist service. PRIMARY MAT INSPECTOR: Dr. Walter. PRIMARY PHYSICIAN: Dr. Sarah Caraballo. CHIEF COMPLAINT: Chest pain. HISTORY: Mr. Sanford is a 58-year-old male that we sew reason in consultation about 4 weeks ago. The patient presented at this time with sudden onset of pain that happened about 9 o'clock in the morning. The patient was resting and the pain was intense. He took a nitroglycerin. He felt a headache. He felt dizzy. However, he continued to hurt in the chest and he got alarmed and decided to call the emergency medical service. The patient has been brought to the emergency room. His initial electrocardiogram shows sinus rhythm with left axis deviation and inferior scar and a nonspecific T-wave in the inferior leads. There is also possible apical scar. PAST HISTORY: Very extensive. He has had acute myocardial infarction in September of 2018. At that time, he had a mid left anterior descending stenosis of 70 to 75 percent and a proximal stenosis of the right coronary artery of 50 to 70 percent with a mid stenosis of 99%. He underwent intervention to the left anterior descending and also to the right coronary artery. Unfortunately, his right coronary artery became occluded as demonstrated by heart catheterization in October 2018. The patient was referred back to [facility] and in November of 2018 they attempted to recanalized that occluded vessel. The attempt failed. The patient was to be admitted to this hospital on March 30 with recurrent chest pain. We did a thallium viability study that showed only minimal viability in the basal aspect of the scar. The patient has an angina pectoris level 3 to 4. He has had an automated implantable cardioverter-defibrillator implanted. He has bipolar disorder, hyperlipidemia, hypertension. SURGICAL HISTORY: Inguinal hernia repair and implantable cardioverter defibrillator implantation. SOCIAL HISTORY: The patient lives with at home. He quit smoking. He has grown-up children. He is on disability. FAMILY HISTORY: Noncontributory. HOME MEDICATIONS: At the time of this admission included aspirin 81 daily, atorvastatin 80 daily, carvedilol 6.25 twice a day, isosorbide mononitrate 60 daily, omeprazole 20 mg daily, Ranexa 1000 twice a day, omeprazole 20 mg daily. Please Refer to MAR for missing drugs. REVIEW OF SYSTEMS: Other than the recurrent chest pain is really noncontributory. PHYSICAL EXAM: Today blood pressure 114/80, temperature 97.9 degrees, pulse 57, respirations 20. He is awake, alert, oriented, in no distress.HEENT: Unremarkable. Chest: Sounds clear to auscultation and percussion. Heart: Sounds are regular in rhythm. I do not hear a gallop or murmur. Abdomen: Soft, nontender. Extremities: Showed decreased pulses. No peripheral edema. Neurologic: Nonfocal. Moves 4 extremities. His neurological exam is normal. Cranial nerves normal. Alert, oriented x3 with normal motion of the upper and lower extremities. Normal strength. LABORATORIES: Blood work showed sodium 136, potassium 2.7, BUN 15, creatinine 0.9. Troponins have been checked a total of 2 times. They are negative. ProBNP is mildly elevated at 253 mcg/mL. Albumin is 4.2, hemoglobin 14.2. IMAGING: Chest x-ray is stable. IMPRESSION: 1. The patient presenting with angina pectoris, functional class 3 to 4. 2. Severe coronary heart disease, total occlusion of right coronary artery, previous stent to left anterior descending. 3. Hyperlipidemia. 4. Bipolar disorder. 5. Hypertension. 6. Status post implantable cardioverter defibrillator implantation. RECOMMENDATION: At this time, we will add low-dose amlodipine. We will see how he does with that. Prognosis is very guarded. I will discuss with Misty and see if there is any possibility of referring the patient for single vessel bypass grafting. Further advice will be forthcoming. Thank you. cc: Benji Grimm MD [facility]
[2019-04-20] MEDS ORDERED: LIPITOR PO SCH ×2 (21:00)
[2019-04-20] MEDS ORDERED: DESYREL PO SCH (21:00)
[2019-04-20] MEDS ORDERED: COREG PO SCH (21:00)
[2019-04-20] MEDS ORDERED: BRILINTA PO SCH (21:00)
[2019-04-20] MEDS: MORPHINE IV PRN (21:11)
[2019-04-21] MEDS: MORPHINE IV PRN (04:17)
--- NOTE | 2019-04-21 06:52 | Diag Imaging Result Doc PS360 ---
CHEST-PORTABLE - 04/21/2019 INDICATION: Chest Pain COMPARISON: 04/20/2019 FINDINGS: Stable left-sided pacemaker. There is some faint linear atelectasis in the left lung base. Otherwise the lungs are clear. Heart size and pulmonary vascularity is normal. IMPRESSION: Faint linear atelectasis in the left lung base. Electronically signed by Neal Gerardo 04/21/2019 6:50 AM
[2019-04-21 06:55] LABS: BASO# 0.04 X1000 (0.0-0.2); BASO% 0.6 % (0.0-0.8); EOS# 0.46 X1000 (0.0-0.7); EOS% 6.3 % (0.0-10.0); HEMATOCRIT 42.1 % (42.0-52.0); IMM GRAN# 0.02 X1000 (0.0-0.04); IMM GRAN% 0.3 % (0.0-0.5); LYMPH% 31.7 % (20.5-51.1); MCH 28.3 PG (27-31); MCHC 33.3 g/dL (33-37); MCV 85.2 FL (81-99); MONO# 0.64 X1000 (0.11-0.59); MONO% 8.8 % (1.7-9.3); MPV 10.4 FL (7.4-10.4); NEUT% 52.3 % (42.2-75.2); PLT 239 X1000 (130-400); RBC 4.94 XMIL (4.7-6.1); RDW 14.5 % (11.5-14.5); WBC 7.26 X1000 (4.8-10.8)
[2019-04-21] MEDS ORDERED: PRILOSEC PO SCH ×2 (07:00)
[2019-04-21 07:01] LABS: AGAP 9; ALB/GLOB RATIO 1.7; ALBUMIN 3.9 g/dL (3.5-5.0); ALKALINE PHOSPHATASE 63 U/L (32-122); BUN 16 mg/dL (8-22); CALCIUM 9.3 mg/dL (8.8-10.2); CHLORIDE 105 mmol/L (98-107); COSMO 283; ESTIMATED GFR > 60; GLUCOSE 107 mg/dL (70-104); GOT 17 U/L (10-34); GPT 20 U/L (10-44); POTASSIUM 4.1 mmol/L (3.5-5.1); SODIUM 141 mmol/L (136-145); TCO2 27 mmol/L (25-35); TOTAL BILIRUBIN 0.62 mg/dL (0.20-1.00); TOTAL PROTEIN 6.2 g/dL (6.3-8.3)
--- NOTE | 2019-04-21 07:26 | EKG Report ---
Test Performed on : 04/21/2019 06:35:42 AM Test Reason : fu CP Blood Pressure : / mmHG Vent. Rate : 050 BPM Atrial Rate : 050 BPM P-R Int : 150 ms QRS Dur : 100 ms QT Int : 480 ms P-R-T Axes : 055 -47 -32 degrees QTc Int : 437 ms Sinus bradycardia. Left axis deviation Possible Lateral infarct (cited on or before 14-OCT-2018) Inferior infarct (cited on or before 08-OCT-2018) ST & T wave abnormality, consider anterior ischemia Abnormal ECG When compared with ECG of 20-APR-2019 12:30, (Unconfirmed) Questionable change in initial forces of Lateral leads Confirmed by Barry MARTÍNEZ, MShelly Spear ([id number]) on 04/21/2019 12:25:42 PM
[2019-04-21 08:29] VITALS: BP 100/66
[2019-04-21] MEDS: RANEXA PO SCH (08:40)
[2019-04-21] MEDS: COREG PO SCH (08:40)
[2019-04-21] MEDS: BRILINTA PO SCH (08:40)
[2019-04-21] MEDS: NORVASC PO SCH (08:40)
[2019-04-21] MEDS ORDERED: ASPIRIN EC PO SCH (09:00)
[2019-04-21] MEDS ORDERED: IMDUR PO SCH ×2 (09:00)
[2019-04-21] MEDS ORDERED: ASPIRIN PO SCH (09:00)
--- NOTE | 2019-04-22 16:07 | DISCHARGE SUMMARY ---
ADMISSION DATE: 04/20/2019 DISCHARGE DATE: 04/21/2019 CONSULTATIONS: DR. Grimm of Cardiology. PERTINENT PROCEDURES: 1. Initial chest x-ray, stable chest. 2. Initial EKG, normal sinus rhythm with left axis deviation. DISCHARGE DIAGNOSES: 1. Unstable angina in a patient with known coronary artery disease status post stenting to the RCA with a recent perfusion and thallium scan. The patient was seen by Dr. Grimm of cardiology. They were initially going to do another scan in the a.m. but after speaking with [facility], he is being transferred for further evaluation and treatment of his 1 vessel disease to see about a coronary artery bypass grafting. 2. Congestive heart failure, status post AICD. 3. Aspiration. 4. Essential hypertension. 5. Hyperlipidemia. 6. Anxiety. Hospital Course: Patient came to the ED for recurrent chest pain was evaluated by cardiology and transferred to [facility] for further workup of his 1 vessel disease for possible CABG. Dictated by VINCE Flowers for Errol Cole MD cc: Errol Cole MD [facility]
== END 2019-04-21 09:15 | disposition short-term general hospital (02) ==
LOC: SUPCPDRO → 2N 09:26 → ED 09:26
PROVIDERS: ATTEND Internal Medicine